=== PATIENT | female | born 1950 | race Hispanic/Latino ===

== ENCOUNTER 2019-01-27 11:26 | Inpatient (IN) | payer OTHER ==
[~2019-01-27] VITALS: Ht 157.5 cm; Wt 70.8 kg
--- OUTSIDE RECORDS SUMMARY | 2019-01-27 11:28 | XMS REPORT ---
Author Author [facility] Address Unknown Phone Unavailable Care Team Providers Care Beater Out Name Role Phone JACOB CALIXTO Unavailable Unavailable DOUGLAS JOLLY Unavailable Unavailable AMYASMIN SHAFFER HARSHINIE Unavailable Unavailable VICTOR HUGO SALAZAR Unavailable Unavailable Carlene BRAVO Unavailable Unavailable Problems This patient has no known problems. Allergies, Adverse Reactions, Alerts This patient has no known allergies or adverse reactions. Medications This patient has no known medications. Results Test Description Test Time Test Comments Text Results Atomic Results Result Comments TSH/FREE T4 IF INDICATED 2017-07-13 06:49:00 THYROID STIMULATING HORMONE (BEAKER) (test ogwl=482) 0.98 uIU/mL 0.35-4.94 HEPATITIS B SURFACE [id number] 16:14:00* Test Item Value Reference Range Comments HEPATITIS B SURFACE ANTIGEN (2) (BEAKER) (test mfnb=8917) Nonreactive Nonreactive For chronic HD patients, draw HBsAg with each admission then every 30 [address].CT, [id number] 21:30:00Reason for exam:->abdominal painWhat is the patient's sedation requirement?->No SedationFINAL REPORT CT, ABDOMEN \\T\\ PELVIS, WITHOUT IV CONTRAST INDICATION: "LLQ pain, suspect diverticulitisabdominal pain" COMPARISON: CT abdomen and pelvis 12/25/1999 and TECHNIQUE: Noncontrast axially oriented images were obtained from the diaphragms through the pelvis. Coronal and sagittal reformats were provided. DOSE REDUCTION: Dose modulation, iterative reconstruction, and/or weight-based adjustment of the mA/kV was utilized to reduce the radiation dose to as low as reasonably achievable. FINDINGS: Small right and trace left-sided effusion with adjacent airspace disease, likely atelectatic.Cardiomegaly. No acute abnormality of the solid abdominal viscera.Surgically absent gallbladder.At rophic kidneys. No acute abnormality of the hollow abdominal viscera.Normal appe ndix. Bone and vascular changes from renal osteodystrophy. IMPRESSION:No acute a bnormality in the abdomen or pelvis. Signed: Holland Fairbanks MDReport Verified D ate/Time: 07/11/2017 21:30:09 Reading Location: [facility] C013X Ortho Consult Read ing Room P M RAD, CHEST, 1 VIEW, NON [id number] 20:37:00Reason for exam:->ABDOMINAL PAINReason for exam:->NAUSEAReason for exam:->EMESISReason for exam:->EXTREMITY WEAKNESSReason for exam:->BRADYCARDIAFINAL REPORT History: Abdominal pain, nausea. FINDINGS: Compared with January 07, 2017, the heart and mediastinum are stable. As before, the heart is mildly enlarged. Mild diffuse increased interstitial lung markings persist. Linear atelectasis in the left midlung has resolved. Persistent opacity is seen in the right lung base, likely atelectasis. Blunting of the right costophrenic sulcus may represent a small pleural effusion. No pneumothorax. Bones are osteopenic but otherwise unremarkable. IMPRESSION: 1. Mild cardiomegaly, unchanged. 2. Mild diffuse increased interstitial lung markings, likely chronic. 3. Possible small right pleural effusion. Signed: David Navarro Verified Date/Time: 07/11/2017 20:37:28 Reading Location: [facility] C013W Consult Reading Room TIC FUNCTION PANEL 2017-07-11 20:21:00* Test Item Value Reference Range Comments TOTAL PROTEIN (BEAKER) (test jnas=763) 7.5 gm/dL 6.0-8.3 ALBUMIN (BEAKER) (test sski=9094) 3.9 g/dL 3.5-5.0 BILIRUBIN TOTAL (BEAKER) (test tmnl=861) 0.8 mg/dL 0.2-1.2 BILIRUBIN DIRECT (BEAKER) (test bflh=676) 0.3 mg/dL 0.1-0.5 ALKALINE PHOSPHATASE (BEAKER) (test ofoo=067) 146 U/L 40-150 AST (SGOT) (BEAKER) (test rtxx=630) 17 U/L 5-34 ALT (SGPT) (BEAKER) (test xtjq=244) 8 U/L 6-55 [id number] 20:21:00* Test Item Value Reference Range Comments LIPASE (BEAKER) (test hpcu=907) 8 U/L 8-78 B-TYPE NATRIURETIC FACTOR (BNP)2017-07-11 19:26:00* Test Item Value Reference Range Comments B-TYPE NATRIURETIC PEPTIDE (BEAKER) (test dcbd=044) 2843 pg/mL 0-100 CREATINE KINASE (CK), TOTAL AND [id number] 19:25:00* Test Item Value Reference Range Comments CREATINE KINASE TOTAL (BEAKER) (test tyfe=119) 30 U/L 29-200 CREATINE KINASE-MB (BEAKER) (test twpk=951) 0.9 ng/mL 0.0-6.6 CREATINE KINASE-MB INDEX (BEAKER) (test umsy=332) 3.0 % CK-MB Reference Range:<6.7 Normal6.7-10.0 Borderline>10.0 Abnormal TROPONIN [id number] 19:25:00* Test Item Value Reference Range Comments TROPONIN I (BEAKER) (test fbyd=159) 0.02 ng/mL 0.00-0.03 Troponin I (TnI) levels must be interpreted in the context of the presenting sym ptoms and the clinical findings. Elevated TnI levels indicate myocardial damage, but are not specific for ischemic heart disease. Elevated TnI levels are seen in patients with other cardiac conditions (including myocarditis and congestive h eart failure), and slight TnI elevations occur in patients with other conditions , including sepsis, renal failure, acidosis, acute neurological disease, and per sistent tachyarrhythmia.BASIC METABOLIC [id number] 19:21:00* Test Item Value Reference Range Comments SODIUM (BEAKER) (test gczw=186) 135 meq/L 136-145 POTASSIUM (BEAKER) (test xoqi=612) 5.2 meq/L 3.5-5.1 CHLORIDE (BEAKER) (test mrzk=421) 97 meq/L 98-107 CO2 (BEAKER) (test nicm=073) 27 meq/L 22-29 BLOOD UREA NITROGEN (BEAKER) (test tdch=867) 31 mg/dL 7-21 CREATININE (BEAKER) (test hiqa=543) 5.41 mg/dL 0.57-1.25 GLUCOSE RANDOM (BEAKER) (test cyhd=807) 143 mg/dL 70-105 CALCIUM (BEAKER) (test vytb=517) 9.4 mg/dL 8.4-10.2 EGFR (BEAKER) (test bxuv=3726) 8 mL/min/1.73 sq m ESTIMATED GFR IS NOT ACCURATE CREATININE CLEARANCE IN PREDICTING GLOMERULAR FILTRATION RATE. ESTIMATED GFR IS NOT APPLICABLE FOR DIALYSIS PATIENTS. [id number] 19:19:00* Test Item Value Reference Range Comments MAGNESIUM (BEAKER) (test rbwf=080) 1.8 mg/dL 1.6-2.6 CBC W/PLT COUNT & AUTO [id number] 18:59:00* Test Item Value Reference Range Comments WHITE BLOOD CELL COUNT (BEAKER) (test owpj=490) 6.2 K/ L 3.5-10.5 RED BLOOD CELL COUNT (BEAKER) (test zbwv=660) 3.63 M/ L 3.93-5.22 HEMOGLOBIN (BEAKER) (test tqni=146) 11.1 GM/DL 11.2-15.7 HEMATOCRIT (BEAKER) (test qdmu=600) 34.4 % 34.1-44.9 MEAN CORPUSCULAR VOLUME (BEAKER) (test bmyu=028) 94.8 fL 79.4-94.8 MEAN CORPUSCULAR HEMOGLOBIN (BEAKER) (test tykr=453) 30.6 pg 25.6-32.2 MEAN CORPUSCULAR HEMOGLOBIN CONC (BEAKER) (test hubx=658) 32.3 GM/DL 32.2-35.5 RED CELL DISTRIBUTION WIDTH (BEAKER) (test upav=132) 14.3 % 11.7-14.4 PLATELET COUNT (BEAKER) (test bsvv=777) 201 K/CU MM 150-450 MEAN PLATELET VOLUME (BEAKER) (test rkxa=384) 10.5 fL 9.4-12.3 NUCLEATED RED BLOOD CELLS (BEAKER) (test zudm=746) 0 /100 WBC 0-0 NEUTROPHILS RELATIVE PERCENT (BEAKER) (test vkku=566) 68 % LYMPHOCYTES RELATIVE PERCENT (BEAKER) (test hwio=716) 19 % MONOCYTES RELATIVE PERCENT (BEAKER) (test nrnh=314) 10 % EOSINOPHILS RELATIVE PERCENT (BEAKER) (test dgmo=099) 1 % BASOPHILS RELATIVE PERCENT (BEAKER) (test pgal=245) 1 % NEUTROPHILS ABSOLUTE COUNT (BEAKER) (test uuta=480) 4.23 K/ L 1.56-6.13 LYMPHOCYTES ABSOLUTE COUNT (BEAKER) (test fhju=195) 1.19 K/ L 1.18-3.74 MONOCYTES ABSOLUTE COUNT (BEAKER) (test dsmv=618) 0.64 K/ L 0.24-0.36 EOSINOPHILS ABSOLUTE COUNT (BEAKER) (test zzzi=049) 0.09 K/ L 0.04-0.36 BASOPHILS ABSOLUTE COUNT (BEAKER) (test betg=189) 0.04 K/ L 0.01-0.08 IMMATURE GRANULOCYTES-RELATIVE PERCENT (BEAKER) (test ifdd=9226) 0 % 0-1 POCT-GLUCOSE [id number] 16:27:00* Test Item Value Reference Range Comments POC-GLUCOSE METER (BEAKER) (test bwvt=2716) 105 mg/dL 70-110 TESTED AT [address] [address] POCT-GLUCOSE [id number] 11:06:00* Test Item Value Reference Range Comments POC-GLUCOSE METER (BEAKER) (test vdnn=8369) 128 mg/dL 70-110 TESTED AT [address] [address] POCT-GLUCOSE [id number] 06:21:00* Test Item Value Reference Range Comments POC-GLUCOSE METER (BEAKER) (test fylp=5045) 119 mg/dL 70-110 TESTED AT [address] [address] POCT-GLUCOSE [id number] 20:26:00* Test Item Value Reference Range Comments POC-GLUCOSE METER (BEAKER) (test njsk=6497) 119 mg/dL 70-110 TESTED AT [address] [address] [id number] 19:43:00* Test Item Value Reference Range Comments PHOSPHORUS (BEAKER) (test klpb=291) 3.2 mg/dL 2.3-4.7 Call lab to add to blood sent this AM. Downtime please. Call me if result is abn ormal. Do not stick patient again now just for this. If unable to do downtime, then add this to labs next week. Ghulam Miranda MD [phone]. Thank [facility].BASIC METABOLIC [id number] 15:39:00* Test Item Value Reference Range Comments SODIUM (BEAKER) (test gpsb=548) 136 meq/L 136-145 POTASSIUM (BEAKER) (test drta=615) 4.6 meq/L 3.5-5.1 CHLORIDE (BEAKER) (test kncw=345) 100 meq/L 98-107 CO2 (BEAKER) (test efox=897) 24 meq/L 22-29 BLOOD UREA NITROGEN (BEAKER) (test eihz=832) 44 mg/dL 7-21 CREATININE (BEAKER) (test vqnj=996) 7.86 mg/dL 0.57-1.25 GLUCOSE RANDOM (BEAKER) (test glaw=994) 113 mg/dL 70-105 CALCIUM (BEAKER) (test mpgw=863) 9.2 mg/dL 8.4-10.2 EGFR (BEAKER) (test rtcn=0089) 5 mL/min/1.73 sq m ESTIMATED GFR IS NOT ACCURATE CREATININE CLEARANCE IN PREDICTING GLOMERULAR FILTRATION RATE. ESTIMATED GFR IS NOT APPLICABLE FOR DIALYSIS PATIENTS. CBC W/PLT COUNT & AUTO [id number] 15:31:00* Test Item Value Reference Range Comments WHITE BLOOD CELL COUNT (BEAKER) (test coui=665) 8.7 K/ L 4.0-10.0 RED BLOOD CELL COUNT (BEAKER) (test ymuo=810) 3.29 M/ L 4.00-5.00 HEMOGLOBIN (BEAKER) (test slej=844) 10.4 GM/DL 12.0-15.0 HEMATOCRIT (BEAKER) (test zyal=607) 32.3 % 36.0-45.0 MEAN CORPUSCULAR VOLUME (BEAKER) (test tdzz=251) 98.2 fL 82.0-99.0 MEAN CORPUSCULAR HEMOGLOBIN (BEAKER) (test yitq=275) 31.7 pg 27.0-33.0 MEAN CORPUSCULAR HEMOGLOBIN CONC (BEAKER) (test wpbm=716) 32.3 GM/DL 32.0-36.0 RED CELL DISTRIBUTION WIDTH (BEAKER) (test ygyx=026) 13.2 % 10.3-14.2 PLATELET COUNT (BEAKER) (test ywqe=443) 231 K/CU MM 150-430 MEAN PLATELET VOLUME (BEAKER) (test bepm=049) 8.0 fL 6.5-10.5 NUCLEATED RED BLOOD CELLS (BEAKER) (test jvru=172) 0 /100 WBC 0-0 NEUTROPHILS RELATIVE PERCENT (BEAKER) (test jjig=267) 67 % LYMPHOCYTES RELATIVE PERCENT (BEAKER) (test fsiw=880) 23 % MONOCYTES RELATIVE PERCENT (BEAKER) (test chlo=938) 6 % EOSINOPHILS RELATIVE PERCENT (BEAKER) (test wbsk=306) 2 % BASOPHILS RELATIVE PERCENT (BEAKER) (test ktds=578) 1 % NEUTROPHILS ABSOLUTE COUNT (BEAKER) (test uwtw=444) 5.81 K/ L 1.80-8.00 LYMPHOCYTES ABSOLUTE COUNT (BEAKER) (test dicx=109) 2.04 K/ L 1.48-4.50 MONOCYTES ABSOLUTE COUNT (BEAKER) (test mxrj=755) 0.56 K/ L 0.00-1.30 EOSINOPHILS ABSOLUTE COUNT (BEAKER) (test mxhw=266) 0.21 K/ L 0.00-0.50 BASOPHILS ABSOLUTE COUNT (BEAKER) (test ache=064) 0.08 K/ L 0.00-0.20 0.00POCT-GLUCOSE [id number] 11:45:00* Test Item Value Reference Range Comments POC-GLUCOSE METER (BEAKER) (test uhop=3659) 102 mg/dL 70-110 TESTED AT [address] [address] POCT-GLUCOSE [id number] 06:15:00* Test Item Value Reference Range Comments POC-GLUCOSE METER (BEAKER) (test alew=4961) 114 mg/dL 70-110 TESTED AT [address] [address] POCT-GLUCOSE [id number] 20:44:00* Test Item Value Reference Range Comments POC-GLUCOSE METER (BEAKER) (test hdvw=4658) 130 mg/dL 70-110 TESTED AT [address] [address] POCT-GLUCOSE [id number] 16:46:00* Test Item Value Reference Range Comments POC-GLUCOSE METER (BEAKER) (test qklq=4121) 101 mg/dL 70-110 TESTED AT [facility] [address] [facility] [address] TISSUE [id number] 16:13:00Surgical Pathology Report Case: [id number] Authorizing Provider: Heath Abel Collected: 01/12/2017 1526 MD Yasmin Ordering Location: [facility] Received: 01/15/2017 0746 Pathologist: Sravan Joseph MD Specimens: A) - Stomach, Antrum, antrum nodularity BX B) - Biopsy, Gastric, gastric body BX - errythema C) - Distal Esophagus, BX PART A GASTRIC ANTRUM BIOPSY:MILD CHRONIC INACTIVE GASTRITIS WITH FOVEOLAR HYPERPLASIAWARTHIN STARRY STAIN FOR HELICOBACTER IS NEGATIVE.PART B GASTRIC BODY BIOPSY:MILD CHRONIC INACTIVE GASTRITIS.WARTHIN STARRY STAIN FOR HELICOBACTER IS NEGATIVEPART C DISTAL ESOPHAGUS BIOPSY:SQUAMOUS EPITHELIUM WITH CHRONIC INFLAMMATION AND REACTIVE CHANGES.NEGATIVE FOR INCREASED EOSINOPHILS, DYSPLASIA, OR INVASIVE CARCINOMA. [id number], [id number] imaging study, erythemaA. Stomach antrum nodularity biopsy; B. Gastric body biopsy; C. Distal esophagus biopsyThe specimen is received in three received in a formalin-filled container all labeled with the patient's information.Specimen A labeled "stomach antrum nodularity biopsy" consists of two fragments of godwin tissue measuring 0.1 and 0.3 cm, submitted A1. Specimen B labeled "gastric body biopsy" consists of three fragments of godwin tissue ranging from 0.1 to 0.2 cm, submitted B1. Specimen C labeled "distal esophagus biopsy" consists of two fragments of godwin tissue ranging from 0.1 to 0.2 cm, submitted entirely C1. CG/plThe following special studies were performed on this case and the interpretation is incorporated in the diagnostic report above:BLOCK A1- WARTHIN STARRYBLOCK B1- WARTHIN STARRY POCT-GLUCOSE [id number] 12:17:00* Test Item Value Reference Range Comments POC-GLUCOSE METER (BEAKER) (test cjbh=0261) 125 mg/dL 70-110 TESTED AT [facility] [address] [facility] [address] POCT-GLUCOSE [id number] 07:11:00* Test Item Value Reference Range Comments POC-GLUCOSE METER (BEAKER) (test eqva=9400) 128 mg/dL 70-110 TESTED AT [address] [address] POCT-GLUCOSE [id number] 21:38:00* Test Item Value Reference Range Comments POC-GLUCOSE METER (BEAKER) (test zosn=4133) 134 mg/dL 70-110 TESTED AT [address] [address] POCT-GLUCOSE [id number] 17:03:00* Test Item Value Reference Range Comments POC-GLUCOSE METER (BEAKER) (test zjec=0349) 119 mg/dL 70-110 TESTED AT [address] [address] POCT-GLUCOSE [id number] 11:12:00* Test Item Value Reference Range Comments POC-GLUCOSE METER (BEAKER) (test szdf=0853) 117 mg/dL 70-110 TESTED AT [address] [address] POCT-GLUCOSE [id number] 06:25:00* Test Item Value Reference Range Comments POC-GLUCOSE METER (BEAKER) (test hhon=6470) 118 mg/dL 70-110 TESTED AT [address] [address] POCT-GLUCOSE [id number] 23:28:00* Test Item Value Reference Range Comments POC-GLUCOSE METER (BEAKER) (test jaek=3083) 152 mg/dL 70-110 TESTED AT [address] [address] POCT-GLUCOSE [id number] 20:02:00* Test Item Value Reference Range Comments POC-GLUCOSE METER (BEAKER) (test levm=5470) 53 mg/dL 70-110 TESTED AT [address] [address] POCT-GLUCOSE [id number] 16:09:00* Test Item Value Reference Range Comments POC-GLUCOSE METER (BEAKER) (test hwsr=2867) 154 mg/dL 70-110 TESTED AT [address] [address] BASIC METABOLIC [id number] 08:26:00* Test Item Value Reference Range Comments SODIUM (BEAKER) (test lhih=147) 140 meq/L 136-145 POTASSIUM (BEAKER) (test okjy=161) 4.0 meq/L 3.5-5.1 CHLORIDE (BEAKER) (test cntc=263) 103 meq/L 98-107 CO2 (BEAKER) (test fjmz=815) 26 meq/L 22-29 BLOOD UREA NITROGEN (BEAKER) (test wjnk=611) 18 mg/dL 7-21 CREATININE (BEAKER) (test yyhi=850) 5.09 mg/dL 0.57-1.25 GLUCOSE RANDOM (BEAKER) (test nqrj=625) 93 mg/dL 70-105 CALCIUM (BEAKER) (test eude=535) 9.0 mg/dL 8.4-10.2 EGFR (BEAKER) (test oyhb=6660) 8 mL/min/1.73 sq m ESTIMATED GFR IS NOT ACCURATE CREATININE CLEARANCE IN PREDICTING GLOMERULAR FILTRATION RATE. ESTIMATED GFR IS NOT APPLICABLE FOR DIALYSIS PATIENTS. Draw at start of HD on day of HD if not yet sent for that day.For use at start o f hemodialysis treatment during day of HD. Floor nurse should not touch this order pre dialysis treatment or else the dialysis nurse will not be able to see this order.If BMP has been done earlier on day of HD, but there is no magnesium, call lab to add magnesium and do it downtime.Draw at start of HD on day of HD if labs not yet sent for that day.For use at start of hemodialysis treatment dur ing day of HD. Floor nurse should not touch this order pre dialysis treatment or else the dialysis nurse will not be able to see this order.Routine. If BMP srinivasan s been done earlier on day of HD, but there is no phosphorus, call lab to add ph osphorus, and do it downtime from previous sample sent.Draw at start of HD on da y of HD if labs not yet sent for that day.For use at start of hemodialysis chrissy tment during day of HD. Floor nurse should not touch this order pre dialysis t reatment or else the dialysis nurse will not be able to see this order. [id number] 08:19:00* Test Item Value Reference Range Comments PHOSPHORUS (BEAKER) (test jdut=342) 3.1 mg/dL 2.3-4.7 Draw at start of HD on day of HD if not yet sent for that day.For use at start o f hemodialysis treatment during day of HD. Floor nurse should not touch this order pre dialysis treatment or else the dialysis nurse will not be able to see this order.If BMP has been done earlier on day of HD, but there is no magnesium, call lab to add magnesium and do it downtime.Draw at start of HD on day of HD if labs not yet sent for that day.For use at start of hemodialysis treatment dur ing day of HD. Floor nurse should not touch this order pre dialysis treatment or else the dialysis nurse will not be able to see this order.Routine. If BMP srinivasan s been done earlier on day of HD, but there is no phosphorus, call lab to add ph osphorus, and do it downtime from previous sample sent.Draw at start of HD on da y of HD if labs not yet sent for that day.For use at start of hemodialysis chrissy tment during day of HD. Floor nurse should not touch this order pre dialysis t reatment or else the dialysis nurse will not be able to see this order.MAGNESIUM 2017-01-13 08:19:00* Test Item Value Reference Range Comments MAGNESIUM (DISHAAKER) (test cyqe=680) 2.2 mg/dL 1.6-2.6 Draw at start of HD on day of HD if not yet sent for that day.For use at start o f hemodialysis treatment during day of HD. Floor nurse should not touch this order pre dialysis treatment or else the dialysis nurse will not be able to see this order.If BMP has been done earlier on day of HD, but there is no magnesium, call lab to add magnesium and do it downtime.Draw at start of HD on day of HD if labs not yet sent for that day.For use at start of hemodialysis treatment dur ing day of HD. Floor nurse should not touch this order pre dialysis treatment or else the dialysis nurse will not be able to see this order.Routine. If BMP srinivasan s been done earlier on day of HD, but there is no phosphorus, call lab to add ph osphorus, and do it downtime from previous sample sent.Draw at start of HD on da y of HD if labs not yet sent for that day.For use at start of hemodialysis chrissy tment during day of HD. Floor nurse should not touch this order pre dialysis t reatment or else the dialysis nurse will not be able to see this order.CBC W/PLT COUNT & AUTO [id number] 08:16:00* Test Item Value Reference Range Comments WHITE BLOOD CELL COUNT (BEAKER) (test yrkh=148) 5.7 K/ L 4.0-10.0 RED BLOOD CELL COUNT (BEAKER) (test qjac=022) 3.24 M/ L 4.00-5.00 HEMOGLOBIN (BEAKER) (test blnx=914) 10.1 GM/DL 12.0-15.0 HEMATOCRIT (BEAKER) (test qrjv=030) 31.5 % 36.0-45.0 MEAN CORPUSCULAR VOLUME (BEAKER) (test nzmc=426) 97.4 fL 82.0-99.0 MEAN CORPUSCULAR HEMOGLOBIN (BEAKER) (test dpbb=827) 31.2 pg 27.0-33.0 MEAN CORPUSCULAR HEMOGLOBIN CONC (BEAKER) (test lpuo=571) 32.0 GM/DL 32.0-36.0 RED CELL DISTRIBUTION WIDTH (BEAKER) (test inpe=949) 13.6 % 10.3-14.2 PLATELET COUNT (BEAKER) (test duqf=915) 248 K/CU MM 150-430 MEAN PLATELET VOLUME (BEAKER) (test wfrk=899) 7.7 fL 6.5-10.5 NUCLEATED RED BLOOD CELLS (BEAKER) (test rpth=433) 0 /100 WBC 0-0 NEUTROPHILS RELATIVE PERCENT (BEAKER) (test grlt=716) 59 % LYMPHOCYTES RELATIVE PERCENT (BEAKER) (test mciq=750) 27 % MONOCYTES RELATIVE PERCENT (BEAKER) (test ghgc=727) 10 % EOSINOPHILS RELATIVE PERCENT (BEAKER) (test keth=561) 3 % BASOPHILS RELATIVE PERCENT (BEAKER) (test ljsc=906) 1 % NEUTROPHILS ABSOLUTE COUNT (BEAKER) (test zxso=425) 3.38 K/ L 1.80-8.00 LYMPHOCYTES ABSOLUTE COUNT (BEAKER) (test ibqo=064) 1.52 K/ L 1.48-4.50 MONOCYTES ABSOLUTE COUNT (BEAKER) (test ajhw=749) 0.58 K/ L 0.00-1.30 EOSINOPHILS ABSOLUTE COUNT (BEAKER) (test lokf=696) 0.18 K/ L 0.00-0.50 BASOPHILS ABSOLUTE COUNT (BEAKER) (test gdhk=412) 0.07 K/ L 0.00-0.20 0.00POCT-GLUCOSE [id number] 07:57:00* Test Item Value Reference Range Comments POC-GLUCOSE METER (BEAKER) (test uldz=2479) 102 mg/dL 70-110 TESTED AT [address] [address] POCT-GLUCOSE [id number] 06:36:00* Test Item Value Reference Range Comments POC-GLUCOSE METER (BEAKER) (test bxps=6023) 95 mg/dL 70-110 TESTED AT [address] [address] POCT-GLUCOSE [id number] 20:09:00* Test Item Value Reference Range Comments POC-GLUCOSE METER (BEAKER) (test xxtu=3637) 94 mg/dL 70-110 TESTED AT [address] [address] POCT-GLUCOSE [id number] 17:28:00* Test Item Value Reference Range Comments POC-GLUCOSE METER (BEAKER) (test drvg=9065) 102 mg/dL 70-110 TESTED AT [address] [address] BLOOD [id number] 16:48:00* Test Item Value Reference Range Comments CULTURE (BEAKER) (test jwnb=4855) No growth in 5 days BLOOD [id number] 16:48:00* Test Item Value Reference Range Comments CULTURE (BEAKER) (test dowf=2340) No growth in 5 days POCT-GLUCOSE [id number] 16:03:00* Test Item Value Reference Range Comments POC-GLUCOSE METER (BEAKER) (test xrxw=5387) 88 mg/dL 70-110 TESTED AT [address] [address] POCT-GLUCOSE [id number] 11:55:00* Test Item Value Reference Range Comments POC-GLUCOSE METER (BEAKER) (test yqqe=8321) 109 mg/dL 70-110 TESTED AT [address] [address] POCT-GLUCOSE [id number] 06:16:00* Test Item Value Reference Range Comments POC-GLUCOSE METER (BEAKER) (test zqsh=2688) 109 mg/dL 70-110 TESTED AT [address] [address] POCT-GLUCOSE [id number] 21:32:00* Test Item Value Reference Range Comments POC-GLUCOSE METER (BEAKER) (test ghjz=3084) 103 mg/dL 70-110 TESTED AT [facility] [address] [facility] [address] POCT-GLUCOSE [id number] 18:40:00* Test Item Value Reference Range Comments POC-GLUCOSE METER (BEAKER) (test vsuc=7532) 139 mg/dL 70-110 TESTED AT [facility] [address] [facility] [address] BASIC METABOLIC [id number] 17:58:00* Test Item Value Reference Range Comments SODIUM (BEAKER) (test stee=589) 136 meq/L 136-145 POTASSIUM (BEAKER) (test gdec=548) 4.2 meq/L 3.5-5.1 CHLORIDE (BEAKER) (test oaen=124) 97 meq/L 98-107 CO2 (BEAKER) (test wbcr=096) 30 meq/L 22-29 BLOOD UREA NITROGEN (BEAKER) (test kldl=286) 25 mg/dL 7-21 CREATININE (BEAKER) (test mjbo=900) 6.19 mg/dL 0.57-1.25 GLUCOSE RANDOM (BEAKER) (test yfeb=761) 125 mg/dL 70-105 CALCIUM (BEAKER) (test ijgs=625) 9.1 mg/dL 8.4-10.2 EGFR (BEAKER) (test jfcq=3659) 7 mL/min/1.73 sq m ESTIMATED GFR IS NOT ACCURATE CREATININE CLEARANCE IN PREDICTING GLOMERULAR FILTRATION RATE. ESTIMATED GFR IS NOT APPLICABLE FOR DIALYSIS PATIENTS. Draw at start of HD on day of HD if not yet sent for that day.For use at start o f hemodialysis treatment during day of HD. Floor nurse should not touch this order pre dialysis treatment or else the dialysis nurse will not be able to see this order.If BMP has been done earlier on day of HD, but there is no magnesium, call lab to add magnesium and do it downtime.Draw at start of HD on day of HD if labs not yet sent for that day.For use at start of hemodialysis treatment dur ing day of HD. Floor nurse should not touch this order pre dialysis treatment or else the dialysis nurse will not be able to see this order.Routine. If BMP srinivasan s been done earlier on day of HD, but there is no phosphorus, call lab to add ph osphorus, and do it downtime from previous sample sent.Draw at start of HD on da y of HD if labs not yet sent for that day.For use at start of hemodialysis chrissy tment during day of HD. Floor nurse should not touch this order pre dialysis t reatment or else the dialysis nurse will not be able to see this order. [id number] 17:57:00* Test Item Value Reference Range Comments PHOSPHORUS (KATE) (test kwfs=013) 2.8 mg/dL 2.3-4.7 Draw at start of HD on day of HD if not yet sent for that day.For use at start o f hemodialysis treatment during day of HD. Floor nurse should not touch this order pre dialysis treatment or else the dialysis nurse will not be able to see this order.If BMP has been done earlier on day of HD, but there is no magnesium, call lab to add magnesium and do it downtime.Draw at start of HD on day of HD if labs not yet sent for that day.For use at start of hemodialysis treatment dur ing day of HD. Floor nurse should not touch this order pre dialysis treatment or else the dialysis nurse will not be able to see this order.Routine. If BMP srinivasan s been done earlier on day of HD, but there is no phosphorus, call lab to add ph osphorus, and do it downtime from previous sample sent.Draw at start of HD on da y of HD if labs not yet sent for that day.For use at start of hemodialysis chrissy tment during day of HD. Floor nurse should not touch this order pre dialysis t reatment or else the dialysis nurse will not be able to see this order.MAGNESIUM 2017-01-11 17:57:00* Test Item Value Reference Range Comments MAGNESIUM (KATE) (test ddev=426) 2.2 mg/dL 1.6-2.6 Draw at start of HD on day of HD if not yet sent for that day.For use at start o f hemodialysis treatment during day of HD. Floor nurse should not touch this order pre dialysis treatment or else the dialysis nurse will not be able to see this order.If BMP has been done earlier on day of HD, but there is no magnesium, call lab to add magnesium and do it downtime.Draw at start of HD on day of HD if labs not yet sent for that day.For use at start of hemodialysis treatment dur ing day of HD. Floor nurse should not touch this order pre dialysis treatment or else the dialysis nurse will not be able to see this order.Routine. If BMP srinivasan s been done earlier on day of HD, but there is no phosphorus, call lab to add ph osphorus, and do it downtime from previous sample sent.Draw at start of HD on da y of HD if labs not yet sent for that day.For use at start of hemodialysis chrissy tment during day of HD. Floor nurse should not touch this order pre dialysis t reatment or else the dialysis nurse will not be able to see this order.CBC W/PLT COUNT & AUTO [id number] 17:48:00* Test Item Value Reference Range Comments WHITE BLOOD CELL COUNT (BEAKER) (test gjui=882) 7.7 K/ L 4.0-10.0 RED BLOOD CELL COUNT (BEAKER) (test nqxx=099) 3.01 M/ L 4.00-5.00 HEMOGLOBIN (BEAKER) (test rctf=451) 9.6 GM/DL 12.0-15.0 HEMATOCRIT (BEAKER) (test kbma=848) 29.2 % 36.0-45.0 MEAN CORPUSCULAR VOLUME (BEAKER) (test axet=191) 96.9 fL 82.0-99.0 MEAN CORPUSCULAR HEMOGLOBIN (BEAKER) (test ofah=828) 31.8 pg 27.0-33.0 MEAN CORPUSCULAR HEMOGLOBIN CONC (BEAKER) (test qwsz=085) 32.8 GM/DL 32.0-36.0 RED CELL DISTRIBUTION WIDTH (BEAKER) (test czwt=698) 13.3 % 10.3-14.2 PLATELET COUNT (BEAKER) (test pbla=507) 241 K/CU MM 150-430 MEAN PLATELET VOLUME (BEAKER) (test zepo=505) 7.9 fL 6.5-10.5 NUCLEATED RED BLOOD CELLS (BEAKER) (test qbmu=566) 0 /100 WBC 0-0 NEUTROPHILS RELATIVE PERCENT (BEAKER) (test dmqi=430) 62 % LYMPHOCYTES RELATIVE PERCENT (BEAKER) (test lkiq=542) 23 % MONOCYTES RELATIVE PERCENT (BEAKER) (test yoxw=588) 11 % EOSINOPHILS RELATIVE PERCENT (BEAKER) (test fjgv=660) 4 % BASOPHILS RELATIVE PERCENT (BEAKER) (test zaec=173) 1 % NEUTROPHILS ABSOLUTE COUNT (BEAKER) (test wncj=742) 4.72 K/ L 1.80-8.00 LYMPHOCYTES ABSOLUTE COUNT (BEAKER) (test yxqp=101) 1.78 K/ L 1.48-4.50 MONOCYTES ABSOLUTE COUNT (BEAKER) (test wwjm=387) 0.83 K/ L 0.00-1.30 EOSINOPHILS ABSOLUTE COUNT (BEAKER) (test dtfv=009) 0.28 K/ L 0.00-0.50 BASOPHILS ABSOLUTE COUNT (BEAKER) (test oynf=693) 0.06 K/ L 0.00-0.20 0.00POCT-GLUCOSE [id number] 16:19:00* Test Item Value Reference Range Comments POC-GLUCOSE METER (BEAKER) (test lijy=9945) 136 mg/dL 70-110 TESTED AT [address] [address] POCT-GLUCOSE [id number] 12:10:00* Test Item Value Reference Range Comments POC-GLUCOSE METER (BEAKER) (test sccg=5592) 110 mg/dL 70-110 TESTED AT [address] [address] POCT-GLUCOSE [id number] 06:01:00* Test Item Value Reference Range Comments POC-GLUCOSE METER (BEAKER) (test sxdi=7977) 127 mg/dL 70-110 TESTED AT [address] [address] POCT-GLUCOSE [id number] 20:09:00* Test Item Value Reference Range Comments POC-GLUCOSE METER (BEAKER) (test yxqo=8656) 124 mg/dL 70-110 TESTED AT [address] [address] POCT-GLUCOSE [id number] 16:59:00* Test Item Value Reference Range Comments POC-GLUCOSE METER (BEAKER) (test rock=7757) 149 mg/dL 70-110 TESTED AT [address] [address] POCT-GLUCOSE [id number] 11:39:00* Test Item Value Reference Range Comments POC-GLUCOSE METER (BEAKER) (test rbbu=7171) 114 mg/dL 70-110 TESTED AT [address] [address] POCT-GLUCOSE [id number] 06:14:00* Test Item Value Reference Range Comments POC-GLUCOSE METER (BEAKER) (test segl=2482) 125 mg/dL 70-110 TESTED AT [facility] [address] [facility] [address] POCT-GLUCOSE [id number] 21:56:00* Test Item Value Reference Range Comments POC-GLUCOSE METER (BEAKER) (test ttol=0683) 99 mg/dL 70-110 TESTED AT [place] [id number] [facility] [address] POCT-GLUCOSE [id number] 17:59:00* Test Item Value Reference Range Comments POC-GLUCOSE METER (BEAKER) (test mtdk=1859) 100 mg/dL 70-110 TESTED AT [place] [id number] [facility] [address] BASIC METABOLIC [id number] 16:23:00* Test Item Value Reference Range Comments SODIUM (BEAKER) (test arue=454) 135 meq/L 136-145 POTASSIUM (BEAKER) (test bbbm=742) 4.5 meq/L 3.5-5.1 CHLORIDE (BEAKER) (test jimx=849) 98 meq/L 98-107 CO2 (BEAKER) (test maoj=446) 27 meq/L 22-29 BLOOD UREA NITROGEN (BEAKER) (test oeke=292) 32 mg/dL 7-21 CREATININE (BEAKER) (test awuy=001) 7.12 mg/dL 0.57-1.25 GLUCOSE RANDOM (BEAKER) (test dfou=764) 111 mg/dL 70-105 CALCIUM (BEAKER) (test jzzi=235) 9.1 mg/dL 8.4-10.2 EGFR (BEAKER) (test oalx=6820) 6 mL/min/1.73 sq m ESTIMATED GFR IS NOT ACCURATE CREATININE CLEARANCE IN PREDICTING GLOMERULAR FILTRATION RATE. ESTIMATED GFR IS NOT APPLICABLE FOR DIALYSIS PATIENTS. If BMP has been done earlier on day of HD, but there is no magnesium, call lab t o add magnesium and do it downtime.Draw at start of HD on day of HD if labs not yet sent for that day.For use at start of hemodialysis treatment during day o f HD. Floor nurse should not touch this order pre dialysis treatment or else the dialysis nurse will not be able to see this order.Routine. If BMP has been done earlier on day of HD, but there is no phosphorus, call lab to add phosphorus, a nd do it downtime from previous sample sent.Draw at start of HD on day of HD if labs not yet sent for that day.For use at start of hemodialysis treatment durin g day of HD. Floor nurse should not touch this order pre dialysis treatment or else the dialysis nurse will not be able to see this order.[id number] 16:22:00* Test Item Value Reference Range Comments MAGNESIUM (KATE) (test urgr=222) 2.2 mg/dL 1.6-2.6 If BMP has been done earlier on day of HD, but there is no magnesium, call lab t o add magnesium and do it downtime.Draw at start of HD on day of HD if labs not yet sent for that day.For use at start of hemodialysis treatment during day o f HD. Floor nurse should not touch this order pre dialysis treatment or else the dialysis nurse will not be able to see this order.Routine. If BMP has been done earlier on day of HD, but there is no phosphorus, call lab to add phosphorus, a nd do it downtime from previous sample sent.Draw at start of HD on day of HD if labs not yet sent for that day.For use at start of hemodialysis treatment durin g day of HD. Floor nurse should not touch this order pre dialysis treatment or else the dialysis nurse will not be able to see this order.[id number] 16:22:00* Test Item Value Reference Range Comments PHOSPHORUS (KATE) (test nprz=972) 2.9 mg/dL 2.3-4.7 If BMP has been done earlier on day of HD, but there is no magnesium, call lab t o add magnesium and do it downtime.Draw at start of HD on day of HD if labs not yet sent for that day.For use at start of hemodialysis treatment during day o f HD. Floor nurse should not touch this order pre dialysis treatment or else the dialysis nurse will not be able to see this order.Routine. If BMP has been done earlier on day of HD, but there is no phosphorus, call lab to add phosphorus, a nd do it downtime from previous sample sent.Draw at start of HD on day of HD if labs not yet sent for that day.For use at start of hemodialysis treatment durin g day of HD. Floor nurse should not touch this order pre dialysis treatment or else the dialysis nurse will not be able to see this order.CBC W/PLT COUNT & AUTO [id number] 16:01:00* Test Item Value Reference Range Comments WHITE BLOOD CELL COUNT (BEAKER) (test rbgs=911) 8.8 K/ L 4.0-10.0 RED BLOOD CELL COUNT (BEAKER) (test dril=406) 3.09 M/ L 4.00-5.00 HEMOGLOBIN (BEAKER) (test dgkv=052) 9.7 GM/DL 12.0-15.0 HEMATOCRIT (BEAKER) (test ptll=900) 30.2 % 36.0-45.0 MEAN CORPUSCULAR VOLUME (BEAKER) (test gwbc=180) 97.9 fL 82.0-99.0 MEAN CORPUSCULAR HEMOGLOBIN (BEAKER) (test qtub=299) 31.5 pg 27.0-33.0 MEAN CORPUSCULAR HEMOGLOBIN CONC (BEAKER) (test zmtm=744) 32.2 GM/DL 32.0-36.0 RED CELL DISTRIBUTION WIDTH (BEAKER) (test hmkb=802) 12.6 % 10.3-14.2 PLATELET COUNT (BEAKER) (test kvaw=333) 229 K/CU MM 150-430 MEAN PLATELET VOLUME (BEAKER) (test vvfs=346) 8.0 fL 6.5-10.5 NUCLEATED RED BLOOD CELLS (BEAKER) (test cdlx=099) 0 /100 WBC 0-0 NEUTROPHILS RELATIVE PERCENT (BEAKER) (test moik=481) 68 % LYMPHOCYTES RELATIVE PERCENT (BEAKER) (test faoz=324) 20 % MONOCYTES RELATIVE PERCENT (BEAKER) (test ogkh=363) 10 % EOSINOPHILS RELATIVE PERCENT (BEAKER) (test sdrs=420) 2 % BASOPHILS RELATIVE PERCENT (BEAKER) (test oxgg=402) 1 % NEUTROPHILS ABSOLUTE COUNT (BEAKER) (test zlzr=011) 5.94 K/ L 1.80-8.00 LYMPHOCYTES ABSOLUTE COUNT (BEAKER) (test ddur=530) 1.74 K/ L 1.48-4.50 MONOCYTES ABSOLUTE COUNT (BEAKER) (test bobz=816) 0.85 K/ L 0.00-1.30 EOSINOPHILS ABSOLUTE COUNT (BEAKER) (test ouwb=310) 0.19 K/ L 0.00-0.50 BASOPHILS ABSOLUTE COUNT (BEAKER) (test aqco=279) 0.07 K/ L 0.00-0.20 0.00POCT-GLUCOSE [id number] 11:22:00* Test Item Value Reference Range Comments POC-GLUCOSE METER (BEAKER) (test vfpe=7856) 102 mg/dL 70-110 TESTED AT [address] [address] POCT-GLUCOSE [id number] 05:59:00* Test Item Value Reference Range Comments POC-GLUCOSE METER (BEAKER) (test sqsn=4940) 107 mg/dL 70-110 TESTED AT [address] [address] POCT-GLUCOSE [id number] 21:20:00* Test Item Value Reference Range Comments POC-GLUCOSE METER (BEAKER) (test heym=5363) 117 mg/dL 70-110 TESTED AT [address] [address] POCT-GLUCOSE [id number] 21:05:00* Test Item Value Reference Range Comments POC-GLUCOSE METER (BEAKER) (test xzir=6407) 155 mg/dL 70-110 TESTED AT [address] [address] POCT-GLUCOSE [id number] 16:30:00* Test Item Value Reference Range Comments POC-GLUCOSE METER (BEAKER) (test icki=4078) 130 mg/dL 70-110 TESTED AT [address] [address] POCT-GLUCOSE [id number] 11:07:00* Test Item Value Reference Range Comments POC-GLUCOSE METER (BEAKER) (test mcmz=7223) 133 mg/dL 70-110 TESTED AT [address] [address] POCT-GLUCOSE [id number] 20:45:00* Test Item Value Reference Range Comments POC-GLUCOSE METER (BEAKER) (test bdgw=0654) 120 mg/dL 70-110 TESTED AT [address] [address] POCT-GLUCOSE [id number] 16:21:00* Test Item Value Reference Range Comments POC-GLUCOSE METER (BEAKER) (test iyrq=1603) 124 mg/dL 70-110 TESTED AT [address] [address] POCT-GLUCOSE [id number] 11:11:00* Test Item Value Reference Range Comments POC-GLUCOSE METER (BEAKER) (test dlbf=1368) 134 mg/dL 70-110 TESTED AT [facility] [address] [facility] [address] POCT-GLUCOSE [id number] 06:56:00* Test Item Value Reference Range Comments POC-GLUCOSE METER (BEAKER) (test wbfg=6745) 104 mg/dL 70-110 TESTED AT [place] [id number] [facility] [address] POCT-GLUCOSE [id number] 23:07:00* Test Item Value Reference Range Comments POC-GLUCOSE METER (BEAKER) (test oqcv=4742) 85 mg/dL 70-110 TESTED AT [place] [id number] [facility] [address] BASIC METABOLIC [id number] 19:12:00* Test Item Value Reference Range Comments SODIUM (BEAKER) (test mzit=997) 132 meq/L 136-145 POTASSIUM (BEAKER) (test butw=889) 4.5 meq/L 3.5-5.1 CHLORIDE (BEAKER) (test nnxs=618) 97 meq/L 98-107 CO2 (BEAKER) (test dxew=505) 28 meq/L 22-29 BLOOD UREA NITROGEN (BEAKER) (test qbav=599) 30 mg/dL 7-21 CREATININE (BEAKER) (test ysau=631) 6.02 mg/dL 0.57-1.25 GLUCOSE RANDOM (BEAKER) (test sgbz=445) 115 mg/dL 70-105 CALCIUM (BEAKER) (test pvpy=901) 8.7 mg/dL 8.4-10.2 EGFR (BEAKER) (test fpwi=5285) 7 mL/min/1.73 sq m ESTIMATED GFR IS NOT ACCURATE CREATININE CLEARANCE IN PREDICTING GLOMERULAR FILTRATION RATE. ESTIMATED GFR IS NOT APPLICABLE FOR DIALYSIS PATIENTS. Draw at start of HD on day of HD if not yet sent for that day.For use at start o f hemodialysis treatment during day of HD. Floor nurse should not touch this order pre dialysis treatment or else the dialysis nurse will not be able to see this order.If BMP has been done earlier on day of HD, but there is no magnesium, call lab to add magnesium and do it downtime.Draw at start of HD on day of HD if labs not yet sent for that day.For use at start of hemodialysis treatment dur ing day of HD. Floor nurse should not touch this order pre dialysis treatment or else the dialysis nurse will not be able to see this order.Routine. If BMP srinivasan s been done earlier on day of HD, but there is no phosphorus, call lab to add ph osphorus, and do it downtime from previous sample sent.Draw at start of HD on da y of HD if labs not yet sent for that day.For use at start of hemodialysis chrissy tment during day of HD. Floor nurse should not touch this order pre dialysis t reatment or else the dialysis nurse will not be able to see this order. [id number] 18:54:00* Test Item Value Reference Range Comments PHOSPHORUS CAROLINE) (test onnw=375) 3.6 mg/dL 2.3-4.7 Draw at start of HD on day of HD if not yet sent for that day.For use at start o f hemodialysis treatment during day of HD. Floor nurse should not touch this order pre dialysis treatment or else the dialysis nurse will not be able to see this order.If BMP has been done earlier on day of HD, but there is no magnesium, call lab to add magnesium and do it downtime.Draw at start of HD on day of HD if labs not yet sent for that day.For use at start of hemodialysis treatment dur ing day of HD. Floor nurse should not touch this order pre dialysis treatment or else the dialysis nurse will not be able to see this order.Routine. If BMP srinivasan s been done earlier on day of HD, but there is no phosphorus, call lab to add ph osphorus, and do it downtime from previous sample sent.Draw at start of HD on da y of HD if labs not yet sent for that day.For use at start of hemodialysis chrissy tment during day of HD. Floor nurse should not touch this order pre dialysis t reatment or else the dialysis nurse will not be able to see this order.MAGNESIUM 2017-01-06 18:54:00* Test Item Value Reference Range Comments MAGNESIUM CAROLINE) (test lobe=581) 1.9 mg/dL 1.6-2.6 Draw at start of HD on day of HD if not yet sent for that day.For use at start o f hemodialysis treatment during day of HD. Floor nurse should not touch this order pre dialysis treatment or else the dialysis nurse will not be able to see this order.If BMP has been done earlier on day of HD, but there is no magnesium, call lab to add magnesium and do it downtime.Draw at start of HD on day of HD if labs not yet sent for that day.For use at start of hemodialysis treatment dur ing day of HD. Floor nurse should not touch this order pre dialysis treatment or else the dialysis nurse will not be able to see this order.Routine. If BMP srinivasan s been done earlier on day of HD, but there is no phosphorus, call lab to add ph osphorus, and do it downtime from previous sample sent.Draw at start of HD on da y of HD if labs not yet sent for that day.For use at start of hemodialysis chrissy tment during day of HD. Floor nurse should not touch this order pre dialysis t reatment or else the dialysis nurse will not be able to see this order.CBC W/PLT COUNT & AUTO [id number] 18:42:00* Test Item Value Reference Range Comments WHITE BLOOD CELL COUNT (BEAKER) (test sdhq=218) 7.7 K/ L 4.0-10.0 RED BLOOD CELL COUNT (BEAKER) (test aeis=552) 2.85 M/ L 4.00-5.00 HEMOGLOBIN (BEAKER) (test kdlh=624) 8.7 GM/DL 12.0-15.0 HEMATOCRIT (BEAKER) (test gxpd=973) 27.5 % 36.0-45.0 MEAN CORPUSCULAR VOLUME (BEAKER) (test twzj=579) 96.3 fL 82.0-99.0 MEAN CORPUSCULAR HEMOGLOBIN (BEAKER) (test ahwv=302) 30.6 pg 27.0-33.0 MEAN CORPUSCULAR HEMOGLOBIN CONC (BEAKER) (test bjcc=895) 31.8 GM/DL 32.0-36.0 RED CELL DISTRIBUTION WIDTH (BEAKER) (test uhbm=789) 13.3 % 10.3-14.2 PLATELET COUNT (BEAKER) (test jpid=038) 178 K/CU MM 150-430 MEAN PLATELET VOLUME (BEAKER) (test zlcb=799) 8.4 fL 6.5-10.5 NUCLEATED RED BLOOD CELLS (BEAKER) (test kwxk=630) 0 /100 WBC 0-0 NEUTROPHILS RELATIVE PERCENT (BEAKER) (test cohz=899) 68 % LYMPHOCYTES RELATIVE PERCENT (BEAKER) (test zpch=790) 19 % MONOCYTES RELATIVE PERCENT (BEAKER) (test iwxz=586) 10 % EOSINOPHILS RELATIVE PERCENT (BEAKER) (test oprt=158) 2 % BASOPHILS RELATIVE PERCENT (BEAKER) (test pkbi=108) 1 % NEUTROPHILS ABSOLUTE COUNT (BEAKER) (test bvjk=326) 5.22 K/ L 1.80-8.00 LYMPHOCYTES ABSOLUTE COUNT (BEAKER) (test qwfc=724) 1.47 K/ L 1.48-4.50 MONOCYTES ABSOLUTE COUNT (BEAKER) (test yndr=764) 0.77 K/ L 0.00-1.30 EOSINOPHILS ABSOLUTE COUNT (BEAKER) (test slyh=006) 0.17 K/ L 0.00-0.50 BASOPHILS ABSOLUTE COUNT (BEAKER) (test bogh=783) 0.07 K/ L 0.00-0.20 0.00POCT-GLUCOSE [id number] 16:53:00* Test Item Value Reference Range Comments POC-GLUCOSE METER (BEAKER) (test mbsv=2197) 88 mg/dL 70-110 TESTED AT [address] [address] POCT-GLUCOSE [id number] 11:26:00* Test Item Value Reference Range Comments POC-GLUCOSE METER (BEAKER) (test gfdf=1074) 87 mg/dL 70-110 TESTED AT [address] [address] POCT-GLUCOSE [id number] 06:59:00* Test Item Value Reference Range Comments POC-GLUCOSE METER (BEAKER) (test obva=2559) 91 mg/dL 70-110 TESTED AT [address] [address] POCT-GLUCOSE [id number] 20:47:00* Test Item Value Reference Range Comments POC-GLUCOSE METER (BEAKER) (test fwsq=9040) 119 mg/dL 70-110 TESTED AT [address] [address] POCT-GLUCOSE [id number] 17:08:00* Test Item Value Reference Range Comments POC-GLUCOSE METER (BEAKER) (test uqao=9935) 113 mg/dL 70-110 TESTED AT [address] [address] POCT-GLUCOSE [id number] 16:17:00* Test Item Value Reference Range Comments POC-GLUCOSE METER (BEAKER) (test nuua=3135) 106 mg/dL 70-110 TESTED AT [address] [address] POCT-GLUCOSE [id number] 11:36:00* Test Item Value Reference Range Comments POC-GLUCOSE METER (BEAKER) (test jwwu=0882) 103 mg/dL 70-110 TESTED AT [address] [address] POCT-GLUCOSE [id number] 07:22:00* Test Item Value Reference Range Comments POC-GLUCOSE METER (BEAKER) (test btmr=7698) 83 mg/dL 70-110 TESTED AT [address] [address] POCT-GLUCOSE [id number] 21:23:00* Test Item Value Reference Range Comments POC-GLUCOSE METER (BEAKER) (test vjgx=4840) 125 mg/dL 70-110 TESTED AT [address] [address] BASIC METABOLIC [id number] 14:23:00* Test Item Value Reference Range Comments SODIUM (BEAKER) (test puvu=918) 134 meq/L 136-145 POTASSIUM (BEAKER) (test xttk=816) 4.3 meq/L 3.5-5.1 CHLORIDE (BEAKER) (test jqft=821) 98 meq/L 98-107 CO2 (BEAKER) (test pcle=769) 27 meq/L 22-29 BLOOD UREA NITROGEN (BEAKER) (test ekly=659) 23 mg/dL 7-21 CREATININE (BEAKER) (test gzze=800) 5.41 mg/dL 0.57-1.25 GLUCOSE RANDOM (BEAKER) (test nbrw=369) 108 mg/dL 70-105 CALCIUM (BEAKER) (test dopj=875) 7.9 mg/dL 8.4-10.2 EGFR (BEAKER) (test zrxn=1306) 8 mL/min/1.73 sq m ESTIMATED GFR IS NOT ACCURATE CREATININE CLEARANCE IN PREDICTING GLOMERULAR FILTRATION RATE. ESTIMATED GFR IS NOT APPLICABLE FOR DIALYSIS PATIENTS. Draw at start of HD on day of HD if not yet sent for that day.For use at start o f hemodialysis treatment during day of HD. Floor nurse should not touch this order pre dialysis treatment or else the dialysis nurse will not be able to see this order.If BMP has been done earlier on day of HD, but there is no magnesium, call lab to add magnesium and do it downtime.Draw at start of HD on day of HD if labs not yet sent for that day.For use at start of hemodialysis treatment dur ing day of HD. Floor nurse should not touch this order pre dialysis treatment or else the dialysis nurse will not be able to see this order.Routine. If BMP srinivasan s been done earlier on day of HD, but there is no phosphorus, call lab to add ph osphorus, and do it downtime from previous sample sent.Draw at start of HD on da y of HD if labs not yet sent for that day.For use at start of hemodialysis chrissy tment during day of HD. Floor nurse should not touch this order pre dialysis t reatment or else the dialysis nurse will not be able to see this order. [id number] 14:17:00* Test Item Value Reference Range Comments PHOSPHORUS (DISHAAKER) (test vgml=075) 4.2 mg/dL 2.3-4.7 Draw at start of HD on day of HD if not yet sent for that day.For use at start o f hemodialysis treatment during day of HD. Floor nurse should not touch this order pre dialysis treatment or else the dialysis nurse will not be able to see this order.If BMP has been done earlier on day of HD, but there is no magnesium, call lab to add magnesium and do it downtime.Draw at start of HD on day of HD if labs not yet sent for that day.For use at start of hemodialysis treatment dur ing day of HD. Floor nurse should not touch this order pre dialysis treatment or else the dialysis nurse will not be able to see this order.Routine. If BMP srinivasan s been done earlier on day of HD, but there is no phosphorus, call lab to add ph osphorus, and do it downtime from previous sample sent.Draw at start of HD on da y of HD if labs not yet sent for that day.For use at start of hemodialysis chrissy tment during day of HD. Floor nurse should not touch this order pre dialysis t reatment or else the dialysis nurse will not be able to see this order.MAGNESIUM 2017-01-04 14:17:00* Test Item Value Reference Range Comments MAGNESIUM (BEAKER) (test thpd=811) 1.8 mg/dL 1.6-2.6 Draw at start of HD on day of HD if not yet sent for that day.For use at start o f hemodialysis treatment during day of HD. Floor nurse should not touch this order pre dialysis treatment or else the dialysis nurse will not be able to see this order.If BMP has been done earlier on day of HD, but there is no magnesium, call lab to add magnesium and do it downtime.Draw at start of HD on day of HD if labs not yet sent for that day.For use at start of hemodialysis treatment dur ing day of HD. Floor nurse should not touch this order pre dialysis treatment or else the dialysis nurse will not be able to see this order.Routine. If BMP srinivasan s been done earlier on day of HD, but there is no phosphorus, call lab to add ph osphorus, and do it downtime from previous sample sent.Draw at start of HD on da y of HD if labs not yet sent for that day.For use at start of hemodialysis chrissy tment during day of HD. Floor nurse should not touch this order pre dialysis t reatment or else the dialysis nurse will not be able to see this order.CBC W/PLT COUNT & AUTO [id number] 14:08:00* Test Item Value Reference Range Comments WHITE BLOOD CELL COUNT (BEAKER) (test asqz=536) 6.0 K/ L 4.0-10.0 RED BLOOD CELL COUNT (BEAKER) (test baqm=679) 3.08 M/ L 4.00-5.00 HEMOGLOBIN (BEAKER) (test qufe=390) 9.5 GM/DL 12.0-15.0 HEMATOCRIT (BEAKER) (test mirf=465) 29.6 % 36.0-45.0 MEAN CORPUSCULAR VOLUME (BEAKER) (test pcnp=459) 96.1 fL 82.0-99.0 MEAN CORPUSCULAR HEMOGLOBIN (BEAKER) (test smhm=546) 31.0 pg 27.0-33.0 MEAN CORPUSCULAR HEMOGLOBIN CONC (BEAKER) (test mjkr=730) 32.2 GM/DL 32.0-36.0 RED CELL DISTRIBUTION WIDTH (BEAKER) (test csgh=962) 13.4 % 10.3-14.2 PLATELET COUNT (BEAKER) (test stxd=762) 178 K/CU MM 150-430 MEAN PLATELET VOLUME (BEAKER) (test wqne=768) 8.2 fL 6.5-10.5 NUCLEATED RED BLOOD CELLS (BEAKER) (test rwva=369) 0 /100 WBC 0-0 NEUTROPHILS RELATIVE PERCENT (BEAKER) (test qmfw=042) 60 % LYMPHOCYTES RELATIVE PERCENT (BEAKER) (test scdk=300) 26 % MONOCYTES RELATIVE PERCENT (BEAKER) (test vnta=203) 11 % EOSINOPHILS RELATIVE PERCENT (BEAKER) (test jfti=437) 3 % BASOPHILS RELATIVE PERCENT (BEAKER) (test axpd=893) 0 % NEUTROPHILS ABSOLUTE COUNT (BEAKER) (test carf=880) 3.58 K/ L 1.80-8.00 LYMPHOCYTES ABSOLUTE COUNT (BEAKER) (test jxie=663) 1.54 K/ L 1.48-4.50 MONOCYTES ABSOLUTE COUNT (BEAKER) (test zlxp=627) 0.64 K/ L 0.00-1.30 EOSINOPHILS ABSOLUTE COUNT (BEAKER) (test uvdk=731) 0.20 K/ L 0.00-0.50 BASOPHILS ABSOLUTE COUNT (BEAKER) (test ruos=667) 0.03 K/ L 0.00-0.20 0.00POCT-GLUCOSE [id number] 11:22:00* Test Item Value Reference Range Comments POC-GLUCOSE METER (BEAKER) (test aivs=4864) 98 mg/dL 70-110 TESTED AT [place] [id number] [facility] [address] POCT-GLUCOSE [id number] 07:22:00* Test Item Value Reference Range Comments POC-GLUCOSE METER (BEAKER) (test dama=5037) 86 mg/dL 70-110 TESTED AT [place] [id number] [facility] [address] POCT-GLUCOSE [id number] 20:33:00* Test Item Value Reference Range Comments POC-GLUCOSE METER (BEAKER) (test tngh=7789) 117 mg/dL 70-110 TESTED AT [address] [address] POCT-GLUCOSE [id number] 16:30:00* Test Item Value Reference Range Comments POC-GLUCOSE METER (BEAKER) (test kfds=1516) 125 mg/dL 70-110 TESTED AT [address] [address] POCT-GLUCOSE [id number] 11:22:00* Test Item Value Reference Range Comments POC-GLUCOSE METER (BEAKER) (test xoso=6000) 112 mg/dL 70-110 TESTED AT [address] [address] POCT-GLUCOSE [id number] 09:54:00* Test Item Value Reference Range Comments POC-GLUCOSE METER (BEAKER) (test ibpa=9840) 105 mg/dL 70-110 TESTED AT [address] [address] POCT-GLUCOSE [id number] 07:24:00* Test Item Value Reference Range Comments POC-GLUCOSE METER (BEAKER) (test dmfy=9381) 102 mg/dL 70-110 TESTED AT [address] [address] POCT-GLUCOSE [id number] 21:22:00* Test Item Value Reference Range Comments POC-GLUCOSE METER (BEAKER) (test dwrk=5279) 125 mg/dL 70-110 TESTED AT [address] [address] POCT-GLUCOSE [id number] 18:33:00* Test Item Value Reference Range Comments POC-GLUCOSE METER (BEAKER) (test qnqg=2335) 114 mg/dL 70-110 TESTED AT [address] [address] POCT-GLUCOSE [id number] 13:14:00* Test Item Value Reference Range Comments POC-GLUCOSE METER (BEAKER) (test zdlz=6263) 86 mg/dL 70-110 TESTED AT [address] [address] BASIC METABOLIC [id number] 09:53:00* Test Item Value Reference Range Comments SODIUM (BEAKER) (test lnyp=645) 133 meq/L 136-145 POTASSIUM (BEAKER) (test rlhd=823) 4.8 meq/L 3.5-5.1 CHLORIDE (BEAKER) (test nemg=289) 98 meq/L 98-107 CO2 (BEAKER) (test puki=829) 26 meq/L 22-29 BLOOD UREA NITROGEN (BEAKER) (test dcle=554) 29 mg/dL 7-21 CREATININE (BEAKER) (test weci=213) 6.15 mg/dL 0.57-1.25 GLUCOSE RANDOM (KATE) (test zqpm=237) 103 mg/dL 70-105 CALCIUM (KATE) (test ohlk=406) 8.0 mg/dL 8.4-10.2 EGFR (KATE) (test evnu=3641) 7 mL/min/1.73 sq m ESTIMATED GFR IS NOT ACCURATE CREATININE CLEARANCE IN PREDICTING GLOMERULAR FILTRATION RATE. ESTIMATED GFR IS NOT APPLICABLE FOR DIALYSIS PATIENTS. Draw at start of HD on day of HD if not yet sent for that day.For use at start o f hemodialysis treatment during day of HD. Floor nurse should not touch this order pre dialysis treatment or else the dialysis nurse will not be able to see this order.If BMP has been done earlier on day of HD, but there is no magnesium, call lab to add magnesium and do it downtime.Draw at start of HD on day of HD if labs not yet sent for that day.For use at start of hemodialysis treatment dur ing day of HD. Floor nurse should not touch this order pre dialysis treatment or else the dialysis nurse will not be able to see this order.Routine. If BMP srinivasan s been done earlier on day of HD, but there is no phosphorus, call lab to add ph osphorus, and do it downtime from previous sample sent.Draw at start of HD on da y of HD if labs not yet sent for that day.For use at start of hemodialysis chrissy tment during day of HD. Floor nurse should not touch this order pre dialysis t reatment or else the dialysis nurse will not be able to see this order. [id number] 09:52:00* Test Item Value Reference Range Comments PHOSPHORUS (KATE) (test tryq=269) 4.4 mg/dL 2.3-4.7 Draw at start of HD on day of HD if not yet sent for that day.For use at start o f hemodialysis treatment during day of HD. Floor nurse should not touch this order pre dialysis treatment or else the dialysis nurse will not be able to see this order.If BMP has been done earlier on day of HD, but there is no magnesium, call lab to add magnesium and do it downtime.Draw at start of HD on day of HD if labs not yet sent for that day.For use at start of hemodialysis treatment dur ing day of HD. Floor nurse should not touch this order pre dialysis treatment or else the dialysis nurse will not be able to see this order.Routine. If BMP srinivasan s been done earlier on day of HD, but there is no phosphorus, call lab to add ph osphorus, and do it downtime from previous sample sent.Draw at start of HD on da y of HD if labs not yet sent for that day.For use at start of hemodialysis chrissy tment during day of HD. Floor nurse should not touch this order pre dialysis t reatment or else the dialysis nurse will not be able to see this order.MAGNESIUM 2017-01-02 09:52:00* Test Item Value Reference Range Comments MAGNESIUM (BEAKER) (test btao=754) 2.0 mg/dL 1.6-2.6 Draw at start of HD on day of HD if not yet sent for that day.For use at start o f hemodialysis treatment during day of HD. Floor nurse should not touch this order pre dialysis treatment or else the dialysis nurse will not be able to see this order.If BMP has been done earlier on day of HD, but there is no magnesium, call lab to add magnesium and do it downtime.Draw at start of HD on day of HD if labs not yet sent for that day.For use at start of hemodialysis treatment dur ing day of HD. Floor nurse should not touch this order pre dialysis treatment or else the dialysis nurse will not be able to see this order.Routine. If BMP srinivasan s been done earlier on day of HD, but there is no phosphorus, call lab to add ph osphorus, and do it downtime from previous sample sent.Draw at start of HD on da y of HD if labs not yet sent for that day.For use at start of hemodialysis chrissy tment during day of HD. Floor nurse should not touch this order pre dialysis t reatment or else the dialysis nurse will not be able to see this order.CBC W/PLT COUNT & AUTO [id number] 09:23:00* Test Item Value Reference Range Comments WHITE BLOOD CELL COUNT (BEAKER) (test kque=300) 6.4 K/ L 4.0-10.0 RED BLOOD CELL COUNT (BEAKER) (test phho=778) 3.32 M/ L 4.00-5.00 HEMOGLOBIN (BEAKER) (test fhcf=594) 10.3 GM/DL 12.0-15.0 HEMATOCRIT (BEAKER) (test ffhx=357) 32.2 % 36.0-45.0 MEAN CORPUSCULAR VOLUME (BEAKER) (test kacm=154) 96.8 fL 82.0-99.0 MEAN CORPUSCULAR HEMOGLOBIN (BEAKER) (test fedw=398) 31.1 pg 27.0-33.0 MEAN CORPUSCULAR HEMOGLOBIN CONC (BEAKER) (test uney=562) 32.1 GM/DL 32.0-36.0 RED CELL DISTRIBUTION WIDTH (BEAKER) (test asdg=298) 12.6 % 10.3-14.2 PLATELET COUNT (BEAKER) (test mftj=760) 185 K/CU MM 150-430 MEAN PLATELET VOLUME (BEAKER) (test xvzb=632) 8.2 fL 6.5-10.5 NUCLEATED RED BLOOD CELLS (BEAKER) (test jzof=396) 0 /100 WBC 0-0 NEUTROPHILS RELATIVE PERCENT (BEAKER) (test vbgc=370) 58 % LYMPHOCYTES RELATIVE PERCENT (BEAKER) (test axsa=553) 26 % MONOCYTES RELATIVE PERCENT (BEAKER) (test hkyq=172) 13 % EOSINOPHILS RELATIVE PERCENT (BEAKER) (test jesi=589) 3 % BASOPHILS RELATIVE PERCENT (BEAKER) (test lcgm=349) 0 % NEUTROPHILS ABSOLUTE COUNT (BEAKER) (test kmok=315) 3.72 K/ L 1.80-8.00 LYMPHOCYTES ABSOLUTE COUNT (BEAKER) (test fszm=653) 1.64 K/ L 1.48-4.50 MONOCYTES ABSOLUTE COUNT (BEAKER) (test qizi=682) 0.85 K/ L 0.00-1.30 EOSINOPHILS ABSOLUTE COUNT (BEAKER) (test esgk=930) 0.21 K/ L 0.00-0.50 BASOPHILS ABSOLUTE COUNT (BEAKER) (test hbvy=203) 0.01 K/ L 0.00-0.20 0.00POCT-GLUCOSE [id number] 07:53:00* Test Item Value Reference Range Comments POC-GLUCOSE METER (BEAKER) (test dzva=1258) 115 mg/dL 70-110 TESTED AT [facility] [address] [facility] [address] POCT-GLUCOSE [id number] 21:17:00* Test Item Value Reference Range Comments POC-GLUCOSE METER (BEAKER) (test yrqp=8756) 149 mg/dL 70-110 TESTED AT [address] [address] POCT-GLUCOSE [id number] 17:42:00* Test Item Value Reference Range Comments POC-GLUCOSE METER (BEAKER) (test smsd=0383) 111 mg/dL 70-110 TESTED AT [address] [address] POCT-GLUCOSE [id number] 12:10:00* Test Item Value Reference Range Comments POC-GLUCOSE METER (BEAKER) (test pbki=6886) 120 mg/dL 70-110 TESTED AT [address] [address] POCT-GLUCOSE [id number] 06:54:00* Test Item Value Reference Range Comments POC-GLUCOSE METER (BEAKER) (test oyao=8947) 120 mg/dL 70-110 TESTED AT [address] [address] POCT-GLUCOSE [id number] 06:29:00* Test Item Value Reference Range Comments POC-GLUCOSE METER (BEAKER) (test ztcl=8434) 120 mg/dL 70-110 TESTED AT [address] [address] POCT-GLUCOSE [id number] 00:31:00* Test Item Value Reference Range Comments POC-GLUCOSE METER (BEAKER) (test kuyw=1654) 96 mg/dL 70-110 TESTED AT [place] [id number] 21:36:00* Test Item Value Reference Range Comments SODIUM (BEAKER) (test jipl=080) 137 meq/L 136-145 POCT-GLUCOSE [id number] 18:54:00* Test Item Value Reference Range Comments POC-GLUCOSE METER (BEAKER) (test arrm=3492) 117 mg/dL 70-110 TESTED AT [address] [address] HEMOGLOBIN [id number] 14:42:00* Test Item Value Reference Range Comments HEMOGLOBIN A1C (BEAKER) (test jncn=027) 6.0 % 4.3-6.1 [id number] 14:36:00* Test Item Value Reference Range Comments SODIUM (BEAKER) (test kixy=800) 139 meq/L 136-145 TROPONIN [id number] 13:28:00* Test Item Value Reference Range Comments TROPONIN I (BEAKER) (test yvfo=064) 0.02 ng/mL 0.00-0.03 Effective 07/21/2014: Reference Range ChangeNew: 0.00-0.03 Previous 0.00-0.15T roponin I (TnI) levels must be interpreted in the context of the presenting symp toms and the clinical findings. Elevated TnI levels indicate myocardial damage, but are not specific for ischemic heart disease. Elevated TnI levels are seen in patients with other cardiac conditions (including myocarditis and congestive he art failure), and slight TnI elevations occur in patients with other conditions, including sepsis, renal failure, acidosis, acute neurological disease, and pers istent tachyarrhythmia.POCT-GLUCOSE [id number] 12:04:00* Test Item Value Reference Range Comments POC-GLUCOSE METER (BEAKER) (test adcy=4177) 100 mg/dL 70-110 TESTED AT [facility] [address] [facility] [address] TSH/FREE T4 IF [id number] 07:06:00* Test Item Value Reference Range Comments THYROID STIMULATING HORMONE (BEAKER) (test wfut=917) 2.23 uIU/mL 0.35-4.94 BASIC METABOLIC [id number] 06:49:00* Test Item Value Reference Range Comments SODIUM (BEAKER) (test lcsv=775) 128 meq/L 136-145 POTASSIUM (BEAKER) (test hjom=625) 6.0 meq/L 3.5-5.1 CHLORIDE (BEAKER) (test xkor=013) 96 meq/L 98-107 CO2 (BEAKER) (test lcpj=363) 21 meq/L 22-29 BLOOD UREA NITROGEN (BEAKER) (test eila=926) 36 mg/dL 7-21 CREATININE (BEAKER) (test qvei=818) 7.02 mg/dL 0.57-1.25 GLUCOSE RANDOM (BEAKER) (test usap=804) 111 mg/dL 70-105 CALCIUM (BEAKER) (test erym=390) 8.0 mg/dL 8.4-10.2 EGFR (BEAKER) (test tuqf=1135) 6 mL/min/1.73 sq m ESTIMATED GFR IS NOT ACCURATE CREATININE CLEARANCE IN PREDICTING GLOMERULAR FILTRATION RATE. ESTIMATED GFR IS NOT APPLICABLE FOR DIALYSIS PATIENTS. [id number] 06:35:00* Test Item Value Reference Range Comments PHOSPHORUS (BEAKER) (test mtdp=765) 4.5 mg/dL 2.3-4.7 [id number] 06:35:00* Test Item Value Reference Range Comments MAGNESIUM (BEAKER) (test hhis=382) 2.1 mg/dL 1.6-2.6 LIPID [id number] 06:35:00* Test Item Value Reference Range Comments TRIGLYCERIDES (BEAKER) (test vznr=844) 45 mg/dL CHOLESTEROL (BEAKER) (test gfrl=332) 96 mg/dL HDL CHOLESTEROL (BEAKER) (test dkwc=401) 39 mg/dL LDL CHOLESTEROL CALCULATED (BEAKER) (test drgm=267) 48 mg/dL Triglyceride Reference Range: Low Risk <150 Borderline 150-199 High Risk 200-499 Very High Risk >=500Cholesterol Reference Range: Low Risk <200 Borderline 200-239 High Risk >240HDL Cholesterol Reference Range: Low Risk >=60 High Risk <40LDL Cholesterol Reference Range: Optimal <100 Near Optimal 100-129 Borderline 130-159 High 160-189 Very High >=190 TROPONIN [id number] 06:35:00* Test Item Value Reference Range Comments TROPONIN I (BEAKER) (test zoso=704) 0.02 ng/mL 0.00-0.03 Effective 07/21/2014: Reference Range ChangeNew: 0.00-0.03 Previous 0.00-0.15T roponin I (TnI) levels must be interpreted in the context of the presenting symp toms and the clinical findings. Elevated TnI levels indicate myocardial damage, but are not specific for ischemic heart disease. Elevated TnI levels are seen in patients with other cardiac conditions (including myocarditis and congestive he art failure), and slight TnI elevations occur in patients with other conditions, including sepsis, renal failure, acidosis, acute neurological disease, and pers istent tachyarrhythmia.CBC (HEMOGRAM ONLY)2016-12-31 06:04:00* Test Item Value Reference Range Comments WHITE BLOOD CELL COUNT (BEAKER) (test jqgr=118) 6.4 K/ L 4.0-10.0 RED BLOOD CELL COUNT (BEAKER) (test ypag=275) 3.45 M/ L 4.00-5.00 HEMOGLOBIN (BEAKER) (test cafm=444) 11.0 GM/DL 12.0-15.0 HEMATOCRIT (BEAKER) (test uiya=844) 32.5 % 36.0-45.0 MEAN CORPUSCULAR VOLUME (BEAKER) (test fxbj=912) 94.0 fL 82.0-99.0 MEAN CORPUSCULAR HEMOGLOBIN (BEAKER) (test uqvh=307) 31.8 pg 27.0-33.0 MEAN CORPUSCULAR HEMOGLOBIN CONC (BEAKER) (test ingr=485) 33.8 GM/DL 32.0-36.0 RED CELL DISTRIBUTION WIDTH (BEAKER) (test asfd=798) 13.3 % 10.3-14.2 PLATELET COUNT (BEAKER) (test yren=503) 163 K/CU MM 150-430 MEAN PLATELET VOLUME (BEAKER) (test jmof=268) 8.3 fL 6.5-10.5 NUCLEATED RED BLOOD CELLS (BEAKER) (test euja=593) 0 /100 WBC 0-0 0.00PROTHROMBIN [id number] 22:47:00* Test Item Value Reference Range Comments PROTIME (BEAKER) (test nrao=088) 13.5 seconds 11.7-14.7 INR (BEAKER) (test ltxj=368) 1.0 <=5.9 RECOMMENDED COUMADIN/WARFARIN INR THERAPY RANGESSTANDARD DOSE: 2.0 - 3.0 Inclu jessika: PROPHYLAXIS for venous thrombosis, systemic embolization; TREATMENT for lora ous thrombosis and/or pulmonary embolus.HIGH RISK: Target INR is 2.5-3.5 for pat ients with mechanical heart valves.CREATINE KINASE (CK), TOTAL AND [id number] 21:18:00* Test Item Value Reference Range Comments CREATINE KINASE TOTAL (BEAKER) (test puld=951) 45 U/L 29-200 CREATINE KINASE-MB (BEAKER) (test gvmo=106) 1.3 ng/mL 0.0-6.6 CREATINE KINASE-MB INDEX (BEAKER) (test rkln=616) 2.9 % Effective 07/21/2014: CK-MB Reference Range ChangeNew: 0.0-6.6 Previous: 0.0- 4.9CK-MB Reference Range:<6.7 Normal6.7-10.0 Borderline>10.0 Abnormal TROPONIN [id number] 21:18:00* Test Item Value Reference Range Comments TROPONIN I (BEAKER) (test lund=403) 0.02 ng/mL 0.00-0.03 Effective 07/21/2014: Reference Range ChangeNew: 0.00-0.03 Previous 0.00-0.15T roponin I (TnI) levels must be interpreted in the context of the presenting symp toms and the clinical findings. Elevated TnI levels indicate myocardial damage, but are not specific for ischemic heart disease. Elevated TnI levels are seen in patients with other cardiac conditions (including myocarditis and congestive he art failure), and slight TnI elevations occur in patients with other conditions, including sepsis, renal failure, acidosis, acute neurological disease, and pers istent tachyarrhythmia.HEPATIC FUNCTION [id number] 21:12:00* Test Item Value Reference Range Comments TOTAL PROTEIN (BEAKER) (test iphy=159) 6.9 gm/dL 6.0-8.3 ALBUMIN (BEAKER) (test totw=3771) 3.4 g/dL 3.5-5.0 BILIRUBIN TOTAL (BEAKER) (test tzfn=843) 0.4 mg/dL 0.2-1.2 BILIRUBIN DIRECT (BEAKER) (test notc=174) 0.2 mg/dL 0.1-0.5 ALKALINE PHOSPHATASE (BEAKER) (test wjkx=696) 173 U/L 40-150 AST (SGOT) (BEAKER) (test apfm=679) 19 U/L 5-34 ALT (SGPT) (BEAKER) (test hasc=627) 11 U/L 6-55 [id number] 21:12:00* Test Item Value Reference Range Comments LIPASE (BEAKER) (test zedm=699) 11 U/L 8-78 BASIC METABOLIC [id number] 18:32:00* Test Item Value Reference Range Comments SODIUM (BEAKER) (test dkmy=633) 129 meq/L 136-145 POTASSIUM (BEAKER) (test halk=416) 5.3 meq/L 3.5-5.1 CHLORIDE (BEAKER) (test gynl=674) 96 meq/L 98-107 CO2 (BEAKER) (test rwzh=393) 23 meq/L 22-29 BLOOD UREA NITROGEN (BEAKER) (test tyab=607) 31 mg/dL 7-21 CREATININE (BEAKER) (test sejk=729) 6.54 mg/dL 0.57-1.25 GLUCOSE RANDOM (BEAKER) (test uioh=091) 110 mg/dL 70-105 CALCIUM (BEAKER) (test boie=992) 8.3 mg/dL 8.4-10.2 EGFR (BEAKER) (test tnvc=0612) 6 mL/min/1.73 sq m ESTIMATED GFR IS NOT ACCURATE CREATININE CLEARANCE IN PREDICTING GLOMERULAR FILTRATION RATE. ESTIMATED GFR IS NOT APPLICABLE FOR DIALYSIS PATIENTS. CBC W/PLT COUNT & AUTO [id number] 18:16:00* Test Item Value Reference Range Comments WHITE BLOOD CELL COUNT (BEAKER) (test kijv=739) 7.2 K/ L 4.0-10.0 RED BLOOD CELL COUNT (BEAKER) (test ostj=428) 3.80 M/ L 4.00-5.00 HEMOGLOBIN (BEAKER) (test wuim=843) 11.8 GM/DL 12.0-15.0 HEMATOCRIT (BEAKER) (test ourj=825) 36.4 % 36.0-45.0 MEAN CORPUSCULAR VOLUME (BEAKER) (test uuur=190) 95.9 fL 82.0-99.0 MEAN CORPUSCULAR HEMOGLOBIN (BEAKER) (test zuue=971) 31.2 pg 27.0-33.0 MEAN CORPUSCULAR HEMOGLOBIN CONC (BEAKER) (test hsdh=339) 32.5 GM/DL 32.0-36.0 RED CELL DISTRIBUTION WIDTH (BEAKER) (test fkqe=115) 12.7 % 10.3-14.2 PLATELET COUNT (BEAKER) (test trqh=216) 171 K/CU MM 150-430 MEAN PLATELET VOLUME (BEAKER) (test znbg=937) 7.9 fL 6.5-10.5 NUCLEATED RED BLOOD CELLS (BEAKER) (test siew=824) 0 /100 WBC 0-0 NEUTROPHILS RELATIVE PERCENT (BEAKER) (test dppf=369) 61 % LYMPHOCYTES RELATIVE PERCENT (BEAKER) (test qace=032) 24 % MONOCYTES RELATIVE PERCENT (BEAKER) (test xhsb=656) 10 % EOSINOPHILS RELATIVE PERCENT (BEAKER) (test xoce=218) 4 % BASOPHILS RELATIVE PERCENT (BEAKER) (test zgvh=874) 0 % NEUTROPHILS ABSOLUTE COUNT (BEAKER) (test gmkk=694) 4.42 K/ L 1.80-8.00 LYMPHOCYTES ABSOLUTE COUNT (BEAKER) (test rxvv=446) 1.76 K/ L 1.48-4.50 MONOCYTES ABSOLUTE COUNT (BEAKER) (test ijpb=568) 0.75 K/ L 0.00-1.30 EOSINOPHILS ABSOLUTE COUNT (BEAKER) (test djlf=872) 0.27 K/ L 0.00-0.50 BASOPHILS ABSOLUTE COUNT (BEAKER) (test pomr=757) 0.02 K/ L 0.00-0.20 0.00POCT-GLUCOSE [id number] 18:09:00* Test Item Value Reference Range Comments POC-GLUCOSE METER (BEAKER) (test oobx=9648) 124 mg/dL 70-110 TESTED AT [facility] [address] [facility] [address] CBC W/PLT COUNT & AUTO [id number] 14:09:00* Test Item Value Reference Range Comments WHITE BLOOD CELL COUNT (BEAKER) (test bxam=825) 6.3 K/ L 4.0-10.0 RED BLOOD CELL COUNT (BEAKER) (test xnna=028) 3.68 M/ L 4.00-5.00 HEMOGLOBIN (BEAKER) (test qmwb=132) 11.7 GM/DL 12.0-15.0 HEMATOCRIT (BEAKER) (test exyi=784) 35.6 % 36.0-45.0 MEAN CORPUSCULAR VOLUME (BEAKER) (test roqk=482) 96.7 fL 82.0-99.0 MEAN CORPUSCULAR HEMOGLOBIN (BEAKER) (test ijdj=380) 31.9 pg 27.0-33.0 MEAN CORPUSCULAR HEMOGLOBIN CONC (BEAKER) (test swfv=485) 33.0 GM/DL 32.0-36.0 RED CELL DISTRIBUTION WIDTH (BEAKER) (test bvkv=992) 13.2 % 10.3-14.2 PLATELET COUNT (BEAKER) (test pnmw=779) 198 K/CU MM 150-430 MEAN PLATELET VOLUME (BEAKER) (test lruo=409) 8.1 fL 6.5-10.5 NUCLEATED RED BLOOD CELLS (BEAKER) (test yrgs=376) 0 /100 WBC 0-0 NEUTROPHILS RELATIVE PERCENT (BEAKER) (test edaf=392) 60 % LYMPHOCYTES RELATIVE PERCENT (BEAKER) (test wyae=573) 25 % MONOCYTES RELATIVE PERCENT (BEAKER) (test tkdi=051) 12 % EOSINOPHILS RELATIVE PERCENT (BEAKER) (test zzts=459) 2 % BASOPHILS RELATIVE PERCENT (BEAKER) (test maye=539) 1 % NEUTROPHILS ABSOLUTE COUNT (BEAKER) (test lqqq=077) 3.74 K/ L 1.80-8.00 LYMPHOCYTES ABSOLUTE COUNT (BEAKER) (test gimq=341) 1.58 K/ L 1.48-4.50 MONOCYTES ABSOLUTE COUNT (BEAKER) (test bpta=130) 0.74 K/ L 0.00-1.30 EOSINOPHILS ABSOLUTE COUNT (BEAKER) (test ozxg=984) 0.15 K/ L 0.00-0.50 BASOPHILS ABSOLUTE COUNT (BEAKER) (test sfxj=534) 0.04 K/ L 0.00-0.20 0.00BASIC METABOLIC [id number] 13:49:00* Test Item Value Reference Range Comments SODIUM (BEAKER) (test tmta=984) 133 meq/L 136-145 POTASSIUM (BEAKER) (test nmvj=062) 5.0 meq/L 3.5-5.1 CHLORIDE (BEAKER) (test yquv=060) 97 meq/L 98-107 CO2 (BEAKER) (test qwpr=753) 25 meq/L 22-29 BLOOD UREA NITROGEN (BEAKER) (test uenk=694) 28 mg/dL 7-21 CREATININE (BEAKER) (test thgg=428) 6.73 mg/dL 0.57-1.25 GLUCOSE RANDOM (BEAKER) (test heqd=429) 106 mg/dL 70-105 CALCIUM (BEAKER) (test czxc=375) 8.2 mg/dL 8.4-10.2 EGFR (BEAKER) (test uuqh=2178) 6 mL/min/1.73 sq m ESTIMATED GFR IS NOT ACCURATE CREATININE CLEARANCE IN PREDICTING GLOMERULAR FILTRATION RATE. ESTIMATED GFR IS NOT APPLICABLE FOR DIALYSIS PATIENTS. Draw at start of HD on day of HD if not yet sent for that day.For use at start o f hemodialysis treatment during day of HD. Floor nurse should not touch this order pre dialysis treatment or else the dialysis nurse will not be able to see this order.If BMP has been done earlier on day of HD, but there is no magnesium, call lab to add magnesium and do it downtime.Draw at start of HD on day of HD if labs not yet sent for that day.For use at start of hemodialysis treatment dur ing day of HD. Floor nurse should not touch this order pre dialysis treatment or else the dialysis nurse will not be able to see this order.Routine. If BMP srinivasan s been done earlier on day of HD, but there is no phosphorus, call lab to add ph osphorus, and do it downtime from previous sample sent.Draw at start of HD on da y of HD if labs not yet sent for that day.For use at start of hemodialysis chrissy tment during day of HD. Floor nurse should not touch this order pre dialysis t reatment or else the dialysis nurse will not be able to see this order. [id number] 13:46:00* Test Item Value Reference Range Comments PHOSPHORUS (DISHAAKER) (test tvnh=148) 4.6 mg/dL 2.3-4.7 Draw at start of HD on day of HD if not yet sent for that day.For use at start o f hemodialysis treatment during day of HD. Floor nurse should not touch this order pre dialysis treatment or else the dialysis nurse will not be able to see this order.If BMP has been done earlier on day of HD, but there is no magnesium, call lab to add magnesium and do it downtime.Draw at start of HD on day of HD if labs not yet sent for that day.For use at start of hemodialysis treatment dur ing day of HD. Floor nurse should not touch this order pre dialysis treatment or else the dialysis nurse will not be able to see this order.Routine. If BMP srinivasan s been done earlier on day of HD, but there is no phosphorus, call lab to add ph osphorus, and do it downtime from previous sample sent.Draw at start of HD on da y of HD if labs not yet sent for that day.For use at start of hemodialysis chrissy tment during day of HD. Floor nurse should not touch this order pre dialysis t reatment or else the dialysis nurse will not be able to see this order.MAGNESIUM 2016-12-26 13:46:00* Test Item Value Reference Range Comments MAGNESIUM (BEAKER) (test hmkj=475) 2.1 mg/dL 1.6-2.6 Draw at start of HD on day of HD if not yet sent for that day.For use at start o f hemodialysis treatment during day of HD. Floor nurse should not touch this order pre dialysis treatment or else the dialysis nurse will not be able to see this order.If BMP has been done earlier on day of HD, but there is no magnesium, call lab to add magnesium and do it downtime.Draw at start of HD on day of HD if labs not yet sent for that day.For use at start of hemodialysis treatment dur ing day of HD. Floor nurse should not touch this order pre dialysis treatment or else the dialysis nurse will not be able to see this order.Routine. If BMP srinivasan s been done earlier on day of HD, but there is no phosphorus, call lab to add ph osphorus, and do it downtime from previous sample sent.Draw at start of HD on da y of HD if labs not yet sent for that day.For use at start of hemodialysis chrissy tment during day of HD. Floor nurse should not touch this order pre dialysis t reatment or else the dialysis nurse will not be able to see this order.CBC W/PLT COUNT & AUTO [id number] 16:13:00* Test Item Value Reference Range Comments WHITE BLOOD CELL COUNT (BEAKER) (test qtqd=952) 5.4 K/ L 4.0-10.0 RED BLOOD CELL COUNT (BEAKER) (test txpw=323) 3.28 M/ L 4.00-5.00 HEMOGLOBIN (BEAKER) (test zbyi=594) 10.5 GM/DL 12.0-15.0 HEMATOCRIT (BEAKER) (test qopl=723) 32.1 % 36.0-45.0 MEAN CORPUSCULAR VOLUME (BEAKER) (test popr=687) 97.9 fL 82.0-99.0 MEAN CORPUSCULAR HEMOGLOBIN (BEAKER) (test qdff=141) 32.0 pg 27.0-33.0 MEAN CORPUSCULAR HEMOGLOBIN CONC (BEAKER) (test vqhg=999) 32.7 GM/DL 32.0-36.0 RED CELL DISTRIBUTION WIDTH (BEAKER) (test vxhp=311) 13.6 % 10.3-14.2 PLATELET COUNT (BEAKER) (test cltz=513) 192 K/CU MM 150-430 MEAN PLATELET VOLUME (BEAKER) (test cvmf=757) 7.8 fL 6.5-10.5 NUCLEATED RED BLOOD CELLS (BEAKER) (test spzz=164) 0 /100 WBC 0-0 NEUTROPHILS RELATIVE PERCENT (BEAKER) (test olpr=482) 54 % LYMPHOCYTES RELATIVE PERCENT (BEAKER) (test zgoq=333) 29 % MONOCYTES RELATIVE PERCENT (BEAKER) (test yqsl=155) 13 % EOSINOPHILS RELATIVE PERCENT (BEAKER) (test cwdg=358) 4 % BASOPHILS RELATIVE PERCENT (BEAKER) (test axsh=952) 1 % NEUTROPHILS ABSOLUTE COUNT (BEAKER) (test igsm=073) 2.89 K/ L 1.80-8.00 LYMPHOCYTES ABSOLUTE COUNT (BEAKER) (test kavb=365) 1.55 K/ L 1.48-4.50 MONOCYTES ABSOLUTE COUNT (BEAKER) (test qjei=543) 0.71 K/ L 0.00-1.30 EOSINOPHILS ABSOLUTE COUNT (BEAKER) (test tezf=760) 0.20 K/ L 0.00-0.50 BASOPHILS ABSOLUTE COUNT (BEAKER) (test fncg=594) 0.05 K/ L 0.00-0.20 0.00BASI METABOLIC [id number] 14:03:00* Test Item Value Reference Range Comments SODIUM (BEAKER) (test ozxg=678) 134 meq/L 136-145 POTASSIUM (BEAKER) (test pwkx=667) 5.5 meq/L 3.5-5.1 CHLORIDE (BEAKER) (test snej=819) 100 meq/L 98-107 CO2 (BEAKER) (test ixzm=572) 21 meq/L 22-29 BLOOD UREA NITROGEN (BEAKER) (test uyjo=579) 53 mg/dL 7-21 CREATININE (BEAKER) (test tbou=510) 9.04 mg/dL 0.57-1.25 GLUCOSE RANDOM (BEAKER) (test jwzh=846) 113 mg/dL 70-105 CALCIUM (BEAKER) (test cbtt=713) 7.9 mg/dL 8.4-10.2 EGFR (BEAKER) (test vdcd=5702) 4 mL/min/1.73 sq m ESTIMATED GFR IS NOT ACCURATE CREATININE CLEARANCE IN PREDICTING GLOMERULAR FILTRATION RATE. ESTIMATED GFR IS NOT APPLICABLE FOR DIALYSIS PATIENTS. Draw at start of HD on day of HD if not yet sent for that day.For use at start o f hemodialysis treatment during day of HD. Floor nurse should not touch this order pre dialysis treatment or else the dialysis nurse will not be able to see this order.If BMP has been done earlier on day of HD, but there is no magnesium, call lab to add magnesium and do it downtime.Draw at start of HD on day of HD if labs not yet sent for that day.For use at start of hemodialysis treatment dur ing day of HD. Floor nurse should not touch this order pre dialysis treatment or else the dialysis nurse will not be able to see this order.Routine. If BMP srinivasan s been done earlier on day of HD, but there is no phosphorus, call lab to add ph osphorus, and do it downtime from previous sample sent.Draw at start of HD on da y of HD if labs not yet sent for that day.For use at start of hemodialysis chrissy tment during day of HD. Floor nurse should not touch this order pre dialysis t reatment or else the dialysis nurse will not be able to see this order. [id number] 13:47:00* Test Item Value Reference Range Comments PHOSPHORUS (KATE) (test eifb=925) 4.9 mg/dL 2.3-4.7 Draw at start of HD on day of HD if not yet sent for that day.For use at start o f hemodialysis treatment during day of HD. Floor nurse should not touch this order pre dialysis treatment or else the dialysis nurse will not be able to see this order.If BMP has been done earlier on day of HD, but there is no magnesium, call lab to add magnesium and do it downtime.Draw at start of HD on day of HD if labs not yet sent for that day.For use at start of hemodialysis treatment dur ing day of HD. Floor nurse should not touch this order pre dialysis treatment or else the dialysis nurse will not be able to see this order.Routine. If BMP srinivasan s been done earlier on day of HD, but there is no phosphorus, call lab to add ph osphorus, and do it downtime from previous sample sent.Draw at start of HD on da y of HD if labs not yet sent for that day.For use at start of hemodialysis chrissy tment during day of HD. Floor nurse should not touch this order pre dialysis t reatment or else the dialysis nurse will not be able to see this order.MAGNESIUM 2016-12-25 13:47:00* Test Item Value Reference Range Comments MAGNESIUM (KATE) (test vjtx=385) 2.1 mg/dL 1.6-2.6 Draw at start of HD on day of HD if not yet sent for that day.For use at start o f hemodialysis treatment during day of HD. Floor nurse should not touch this order pre dialysis treatment or else the dialysis nurse will not be able to see this order.If BMP has been done earlier on day of HD, but there is no magnesium, call lab to add magnesium and do it downtime.Draw at start of HD on day of HD if labs not yet sent for that day.For use at start of hemodialysis treatment dur ing day of HD. Floor nurse should not touch this order pre dialysis treatment or else the dialysis nurse will not be able to see this order.Routine. If BMP srinivasan s been done earlier on day of HD, but there is no phosphorus, call lab to add ph osphorus, and do it downtime from previous sample sent.Draw at start of HD on da y of HD if labs not yet sent for that day.For use at start of hemodialysis chrissy tment during day of HD. Floor nurse should not touch this order pre dialysis t reatment or else the dialysis nurse will not be able to see this order.HEPATITIS B SURFACE [id number] 05:29:00* Test Item Value Reference Range Comments HEPATITIS B SURFACE ANTIGEN (2) (KATE) (test miih=4017) Nonreactive Nonreactive To lab: Do not do this or send sticker for this more than once every 30 days. La b. to please inform HD nurse not to send blood again if already sent within the past 30 days.For chronic HD patients, draw HBsAg ONCE ONLY with each admission T HEN every 30 days. Do this on day of dialysis if not yet done within the last 30 days. Do not stick patient separately just for this.Let hemodialysis nurse draw this please if not yet done within the last 30 days. Thanks.BASIC METABOLIC [id number] 15:08:00* Test Item Value Reference Range Comments SODIUM (BEAKER) (test edoe=937) 138 meq/L 136-145 POTASSIUM (BEAKER) (test oclm=388) 5.4 meq/L 3.5-5.1 Specimen slightly hemolyzed CHLORIDE (BEAKER) (test kwdf=255) 101 meq/L 98-107 CO2 (BEAKER) (test vife=856) 18 meq/L 22-29 BLOOD UREA NITROGEN (BEAKER) (test xqrr=379) 53 mg/dL 7-21 CREATININE (BEAKER) (test edsv=160) 8.52 mg/dL 0.57-1.25 Specimen slightly hemolyzed GLUCOSE RANDOM (BEAKER) (test rccn=979) 100 mg/dL 70-105 CALCIUM (BEAKER) (test ncki=992) 9.0 mg/dL 8.4-10.2 EGFR (BEAKER) (test qudy=0052) 5 mL/min/1.73 sq m ESTIMATED GFR IS NOT ACCURATE CREATININE CLEARANCE IN PREDICTING GLOMERULAR FILTRATION RATE. ESTIMATED GFR IS NOT APPLICABLE FOR DIALYSIS PATIENTS. ALKALINE [id number] 15:07:00* Test Item Value Reference Range Comments ALKALINE PHOSPHATASE (BEAKER) (test jthx=715) 234 U/L 40-150 Effective 07/21/2014: Alkaline Phosphatase Reference Range Change-Adult onlyNew: 40-150 Previous: [id number] 15:07:00* Test Item Value Reference Range Comments LIPASE (BEAKER) (test vztw=966) 9 U/L 8-78 ALT (SGPT)2016-12-24 15:07:00* Test Item Value Reference Range Comments ALT (SGPT) (BEAKER) (test xwzl=418) 11 U/L 6-55 Specimen slightly hemolyzed [id number] 15:07:00* Test Item Value Reference Range Comments AMYLASE (BEAKER) (test tyzj=657) 49 U/L 25-125 Specimen slightly hemolyzed AST (SGOT)2016-12-24 15:07:00* Test Item Value Reference Range Comments AST (SGOT) (BEAKER) (test anfq=707) 19 U/L 5-34 Specimen slightly hemolyzed CBC W/PLT COUNT & AUTO [id number] 13:49:00* Test Item Value Reference Range Comments WHITE BLOOD CELL COUNT (BEAKER) (test ajml=400) 6.1 10e3/ L 4.0-10.0 RED BLOOD CELL COUNT (BEAKER) (test rhwr=252) 4.33 10e6/ L 4.00-5.00 HEMOGLOBIN (BEAKER) (test kuqi=387) 13.0 g/dL 12.0-15.0 HEMATOCRIT (BEAKER) (test rynx=619) 40.1 % 36.0-45.0 MEAN CORPUSCULAR VOLUME (BEAKER) (test wluq=842) 92.5 fL 82.0-99.0 MEAN CORPUSCULAR HEMOGLOBIN (BEAKER) (test sgzz=620) 29.9 pg 27.0-33.0 MEAN CORPUSCULAR HEMOGLOBIN CONC (BEAKER) (test vzar=534) 32.4 g/dL 32.0-36.0 RED CELL DISTRIBUTION WIDTH (BEAKER) (test fgev=316) 13.3 % 10.3-14.2 PLATELET COUNT (BEAKER) (test vrxt=732) 259 10e3/ L 150-430 MEAN PLATELET VOLUME (BEAKER) (test qxvn=276) 7.9 fL 6.5-10.5 NEUTROPHILS RELATIVE PERCENT (BEAKER) (test ubjv=517) 64 % LYMPHOCYTES RELATIVE PERCENT (BEAKER) (test mhax=515) 22 % MONOCYTES RELATIVE PERCENT (BEAKER) (test ebum=997) 11 % EOSINOPHILS RELATIVE PERCENT (BEAKER) (test unat=184) 3 % BASOPHILS RELATIVE PERCENT (BEAKER) (test ecgt=369) 0 % NEUTROPHILS ABSOLUTE COUNT (BEAKER) (test ztbd=068) 3.85 10e3/ L 1.80-8.00 LYMPHOCYTES ABSOLUTE COUNT (BEAKER) (test kjnd=354) 1.33 10e3/ L 1.48-4.50 MONOCYTES ABSOLUTE COUNT (BEAKER) (test jsdl=658) 0.64 10e3/ L 0.00-1.30 EOSINOPHILS ABSOLUTE COUNT (BEAKER) (test fcja=783) 0.21 10e3/ L 0.00-0.50 BASOPHILS ABSOLUTE COUNT (BEAKER) (test fftk=215) 0.02 10e3/ L 0.00-0.20
--- OUTSIDE RECORDS SUMMARY | 2019-01-27 11:28 | XMS REPORT | Clinical Summary ---
Author Author [employer] Organization [employer] Address Unknown Phone Unavailable Care Team Providers Care Possum Trapper Name Role Phone PCP Unavailable Allergies Not on File Medications Not on file Active Problems Not on file Social History Date Tobacco Use Types Packs/Day Years Used Never Assessed Sex Assigned at Date Recorded Not on file Industry Job Start Date Occupation Not on file Not on file Not on file Travel End Travel History Travel Start No recent travel history available. Last Filed Vital Signs Not on file Plan of Treatment Not on file Results Not on fileafter 01/26/2018
[2019-01-27] MEDS ORDERED: CLONIDINE HCL 0.1 MG TAB ONE (12:26)
[2019-01-27] MEDS ORDERED: CLONIDINE HCL 0.2 MG TAB PO ONE (12:30)
--- NOTE | 2019-01-27 14:41 | Diagnostic Imaging Report ---
EXAMINATION: CXR 2 VIEW - HOPD INDICATION: High blood pressure. Itchy eyes. COMPARISON: None FINDINGS: TUBES and LINES: None. LUNGS: Lungs are well inflated. There are bibasilar atelectasis. There is perihilar interstitial opacities, consistent with interstitial edema. PLEURA: No pleural effusion or pneumothorax. HEART AND MEDIASTINUM: Cardiac size is moderately enlarged. There are atherosclerotic calcifications within the aorta. BONES AND SOFT TISSUES: No acute osseous lesion. Soft tissues are unremarkable. UPPER ABDOMEN: No free air under the diaphragm. IMPRESSION: Moderate cardiomegaly with interstitial edema. Signed by: Dr. Osvaldo Gunn M.D. on 01/27/2019 2:38 PM
[2019-01-27] MEDS ORDERED: SODIUM CHLORIDE FLUSH 10 ML SYR INJ PRN (16:15)
[2019-01-27] MEDS ORDERED: ONDANSETRON HCL INJ 2MG/ML 2ML 2 MG/ML VIAL IV PRN (16:15)
[2019-01-27] MEDS ORDERED: ASPIRIN 81 MG CHEW TAB PO ONE (16:15)
--- OUTSIDE RECORDS SUMMARY | 2019-01-27 16:59 | XMS REPORT | Clinical Summary ---
Author Author [employer] [facility] Address Unknown Phone Unavailable Care Team Providers Care Leak Detector Name Role Phone PCP Unavailable Allergies Not [...]
--- NOTE | 2019-01-27 17:48 | NUR ---
REPORT TO [facility] REPORT TO JENNIFER LOPEZ ALL QUESTIONS ANSWERED
--- NOTE | 2019-01-27 18:01 | NUR ---
REC'D PT AAOX3, BLIND TO BOTH EYES, NC IN PLACE RUNNING AT 2L/MIN. NO S/S OF DISTRESS. BP IS 209/84. [employer] FIELD COORDINATOR NOTIFIED. DAUGHTER AT BEDSIDE. TRANSFERRED PATIENT FROM STRETCHER TO BED. TELE BOX #28 AND RUNNING AT SINUS BRADYCARDIA. SIDE RAILS UP X2, BED IN LOWEST POSITION, AND CALL HURST WITHIN REACH.
[2019-01-27] MEDS: HYDRALAZINE HCL 20 MG/ML VIAL IV PRN (18:20)
[2019-01-27 18:32] VITALS: BP 209/84
[2019-01-27 18:33] VITALS: BP 209/84
[2019-01-27] MEDS ORDERED: OMEPRAZOLE40 MG PO (18:44)
[2019-01-27] MEDS ORDERED: CLONIDINE HCL0.1 MG PO (18:44)
[2019-01-27] MEDS ORDERED: HYDRALAZINE HCL25 MG PO (18:44)
[2019-01-27] MEDS ORDERED: AMLODIPINE BESY10 MG PO (18:44)
[2019-01-27] MEDS ORDERED: RENAGEL800 MG PO (18:44)
[2019-01-27] MEDS ORDERED: NEPHRO-VITE TABL1 EA PO (18:44)
--- NOTE | 2019-01-27 18:55 | NUR ---
REPORTED TO DIRECTOR CARDIOVASCULAR NURSE TO NOTIFY IS LABS COME BACK ABNORMAL TO WHETHER START DIALYSIS TONIGHT OR NO.
[2019-01-27 18:56] VITALS: BP 195/81
[2019-01-27] MEDS ORDERED: CLONIDINE HCL 0.1 MG TAB PO PRN (19:00)
[2019-01-27 20:00] VITALS: BP 203/84
[2019-01-27] MEDS: HYDRALAZINE HCL 25 MG TAB PO SCH (20:24)
[2019-01-27] MEDS: SEVELAMER CARBONATE 800 MG TAB PO SCH (20:24)
--- NOTE | 2019-01-27 20:30 | NUR ---
bp 203/84, scheduled hydralazine 100 mg given.
[2019-01-27 20:47] LABS: BASOPHILS % 0.6 % (0.0-1.0); EOSINOPHILS # (AUTO) 0.1 (0.0-0.4); EOSINOPHILS % 1.9 % (0.0-6.0); HEMATOCRIT 33.8 % (34.2-44.1); HEMOGLOBIN 10.7 g/dL (12.0-16.0); LYMPHOCYTES # (AUTO) 1.2 (1.0-3.2); LYMPHOCYTES % 18.8 % (18.0-39.1); MEAN CORPUSCULAR HEMOGLOBIN 30.8 pg (28-32); MEAN CORPUSCULAR HGB CONC 31.7 g/dL (31-35); MEAN CORPUSCULAR VOLUME 97.4 fL (81-99); MONOCYTES # (AUTO) 0.6 (0.2-0.8); NEUTROPHILS # (AUTO) 4.4 (2.1-6.9); NEUTROPHILS % 68.2 % (38.7-80.0); PLATELET COUNT 230 x10e3/uL (140-360); RED BLOOD COUNT 3.47 x10e6/uL (3.6-5.1)
[2019-01-27 21:04] LABS: CALCIUM 9.7 mg/dL (8.4-10.2); CREATININE, SERUM 6.04 mg/dL (0.57-1.11)
--- NOTE | 2019-01-27 21:42 | NUR ---
called dr calix with lab results. orders for hemodialysis tomorrow 01/28/19, call placed to [facility], spoke to vel [phone].
--- NOTE | 2019-01-27 21:45 | NUR ---
rechecked bp 186/66
[2019-01-28] VITALS (9 sets, daily range): BP systolic 162–210; BP diastolic 63–85
--- NOTE | 2019-01-28 00:30 | NUR ---
bp 199/84, prn hydralazine given.
[2019-01-28] MEDS: HYDRALAZINE HCL 20 MG/ML VIAL IV PRN ×2 (01:38→05:58)
--- NOTE | 2019-01-28 01:39 | NUR ---
recheck bp 187/77.
--- NOTE | 2019-01-28 04:15 | NUR ---
bp 210/79, prn clonidine given.
[2019-01-28 05:13] LABS: BASOPHILS % 0.5 % (0.0-1.0); EOSINOPHILS # (AUTO) 0.1 (0.0-0.4); EOSINOPHILS % 1.7 % (0.0-6.0); HEMATOCRIT 31.9 % (34.2-44.1); HEMOGLOBIN 10.2 g/dL (12.0-16.0); LYMPHOCYTES # (AUTO) 1.1 (1.0-3.2); LYMPHOCYTES % 17.2 % (18.0-39.1); MEAN CORPUSCULAR HEMOGLOBIN 30.8 pg (28-32); MEAN CORPUSCULAR VOLUME 96.4 fL (81-99); MONOCYTES # (AUTO) 0.6 (0.2-0.8); MONOCYTES % 8.4 % (4.4-11.3); NEUTROPHILS # (AUTO) 4.7 (2.1-6.9); NEUTROPHILS % 71.9 % (38.7-80.0); PLATELET COUNT 234 x10e3/uL (140-360); RED BLOOD COUNT 3.31 x10e6/uL (3.6-5.1); RED CELL DISTRIBUTION WIDTH 16.7 % (11.7-14.4)
--- NOTE | 2019-01-28 05:41 | NUR ---
bp after prn clonidine, 194/79.
[2019-01-28 05:45] LABS: ANION GAP 13.2 mmol/L (8-16); CALCIUM 9.6 mg/dL (8.4-10.2); CREATININE, SERUM 6.53 mg/dL (0.57-1.11); POTASSIUM 4.2 mmol/L (3.5-5.1)
[2019-01-28 06:33] LABS: CREATINE KINASE MB 0.8 ng/mL (0-5.0)
--- NOTE | 2019-01-28 07:10 | NUR ---
PT IS AAOX3, ON 2 L/MIN NC FOR O2, NO S/S OF DISTRESS. PT IS BLIND. IV TO RIGHT WRIST CLEAN AND INTACT. TELE BOX #28 AND RUNNING AT SB. BED IN LOWEST POSITION, SIDE RAILS UP X2, AND CALL HURST WITHIN REACH.
--- NOTE | 2019-01-28 07:42 | NUR ---
CALLED DIALYSIS CENTER TO ASK WHAT TIME DIALYSIS NURSE WILL BE HERE FOR DIALYZE PATIENT. DIALYSIS NURSE TO CALL BACK WITH AN ESTIMATION TIME.
[2019-01-28] MEDS: AMLODIPINE BESYLATE 10 MG TAB PO SCH (09:00)
[2019-01-28] MEDS: DOCUSATE SODIUM 100 MG CAP PO SCH ×2 (09:00→18:14)
[2019-01-28] MEDS: HYDRALAZINE HCL 25 MG TAB PO SCH ×3 (09:00→21:00)
--- NOTE | 2019-01-28 09:00 | NUR ---
CALLED DIALYSIS CENTER AGAIN TO SEE WHAT TIME DIALYSIS NURSE WILL BE HERE TO DIALYZE PATIENT. WAITING FOR SPRAY DRIER OPERATOR TO CALL BACK.
[2019-01-28] MEDS: SEVELAMER CARBONATE 800 MG TAB PO SCH ×3 (09:42→21:00)
[2019-01-28] MEDS: FAMOTIDINE 20 MG TAB PO SCH ×2 (09:42→18:14)
[2019-01-28] MEDS: FOLIC ACID/CYANOCOB/PYRIDOXINE TAB PO SCH (09:47)
--- NOTE | 2019-01-28 11:04 | NUR ---
DR. MORALES IN ROOM WITH PATIENT. NOTIFIED THAT DIALYSIS CENTER HAS BEEN NOTIFIED THREE TIMES ABOUT WHAT TIME THEY WILL BE IN TO DIALYZE HER.
--- NOTE | 2019-01-28 13:39 | Consultation ---
DATE OF CONSULTATION: 01/28/2019 Nephrology Consultation Note REASON FOR CONSULTATION: Dialysis management. HISTORY OF PRESENT ILLNESS: This is a 68-year-old female, known ESRD on dialysis, hypertension, comes into the emergency room due to elevated blood pressure that was occurring at home. According to the daughter at bedside, she reports that her blood pressure was extremely elevated at home and brought her in for further evaluation. Denies any headache, blurry vision, chest pain, or palpitations. She does report that she is very compliant with her dialysis. Denies any shortness of breath, cough, or congestion. Reports her last hemodialysis treatment was on Sunday and she was doing well with no issues. This patient is a patient of Dr. Perez, he is the primary doughnut batter mixer, which I cover for him. The patient was evaluated at bedside on the medical floor, currently doing well, getting a 2D echo. REVIEW OF SYSTEMS: Pertinent positives: Elevated blood pressure. Pertinent negatives: Denies any chest pain, palpitation, nausea, vomiting, diarrhea, dysuria, hematuria, frequency, urgency, lightheadedness, dizziness, abdominal pain, headaches, shortness of breath, cough, congestion, fever, or any other complaints. The rest of the 14-point review of systems have been reviewed with the patient and are negative. ALLERGIES: NO KNOWN DRUG ALLERGIES. HOME MEDICATIONS: Amlodipine 10 mg a day, clonidine 0.1 mg b.i.d. for elevated blood pressure, hydralazine 100 mg p.o. t.i.d., Renvela 400 mg p.o. t.i.d., and omeprazole 40 mg daily. PAST MEDICAL HISTORY: ESRD, on dialysis; hypertension; acid reflux. SURGICAL HISTORY: AV fistula creation, tunneled dialysis catheter. FAMILY HISTORY: Hypertension and diabetes. SOCIAL HISTORY: No drugs. No alcohol. Does not smoke. Good social support. PHYSICAL EXAMINATION: VITAL SIGNS: Temperature is 96.5, pulse 62, respiratory rate is 15, blood pressure is 172/73, pulse ox is 97% on room air. GENERAL: Not in acute distress. Alert and oriented x3. Cooperative on examination. HEENT: Head is normocephalic and atraumatic. Eyes; pupils are equal, round, and reactive to light bilaterally. Extraocular movements are intact bilaterally. Throat, no evidence of erythema or exudates in the posterior pharynx. Has poor dentition. NECK: Supple. Good range of motion. PULMONARY: Clear to auscultation bilaterally. No wheezing, no rales, no rhonchi, no crackles appreciated. CARDIOVASCULAR: Positive S1, S2. No murmurs, rubs, or gallops appreciated. ABDOMEN: Soft, nondistended, and nontender to palpation. Bowel sounds present. MUSCULOSKELETAL: Strength is 5/5 throughout. No evidence of any muscle deficits on examination. No weakness appreciated. NEUROLOGICAL: Cranial nerves 2 through 12 grossly intact. No evidence of any neurological deficits on exam. SKIN: Intact. Warm to touch. Good cap refill. PSYCHIATRIC: Normal affect and mood. EXTREMITIES: No edema. Good range of motion throughout. LABORATORY DATA: Lab findings show white count 6.5, hemoglobin 10.2, hematocrit 32, and platelets of 238. Chemistry; sodium was 135, potassium 4.2, chloride is 100, bicarb 26, anion gap of 13, BUN of 34, creatinine is 6.5, glucose is 109, calcium is 9.6. Troponins were negative. Albumin was 3. IMAGING STUDIES: Chest x-ray; moderate cardiomegaly with interstitial edema. IMPRESSION: 1. End-stage renal disease, on hemodialysis, Sunday, , Sunday. 2. Hypertension urgency. 3. Secondary hyperparathyroidism. 4. Anemia of end-stage renal disease. PLAN: At this time, her blood pressure seems to be in good control. She is only on hydralazine and Norvasc. I recommend discontinuing the Norvasc and adding nifedipine XL at 60 mg daily at is a very potent drug and very good for blood pressure. I will also try to challenge her on dialysis today approximately 3-4 L as tolerated. She normally gets 2 L on dialysis, but I will challenge her as her chest x-ray is consistent with pulmonary edema. Continue with phosphate binders renal diet. Her hemoglobin is 10.2 within the goal of 10 and 11. Otherwise, I discussed plan of care with nursing staff as well. MD CHINMAY Chaidez/RACHEL /[id number]
[2019-01-28 13:51] LABS: CREATINE KINASE MB 0.8 ng/mL (0-5.0)
--- NOTE | 2019-01-28 15:10 | NUR ---
Visit made by the Spiritual Care Department Pastoral Visitor, Judit Gruber. PV provided pastoral presence, hospitality, and supportive listening. Pastoral Visitor informed pt/family of the scope of [employer] and availability. ELIJAH JONES Blood Tester Fowl Spiritual Care Department O: [phone] Pager: [phone] ([phone] number calling from)
[2019-01-28] MEDS ORDERED: ONDANSETRON HCL 4 MG ORAL DISINTEGRATING TAB PO PRN (15:45)
--- NOTE | 2019-01-28 18:15 | NUR ---
PT IS UNDERGOING IJ PROCEDURE IN ROOM. NO S/S OF DISTRESS. Addendum: 01/28/19 at 1842 by SHAISTA BRENNER RN DOCUMENTED ON WRONG PATIENT. PATIENT IS LAYING BED, DAUGHTER IS AT BEDSIDE. DIALYSIS TO BE DONE BETWEEN 6PM-8PM PER DIALYSIS NURSE. SIDE RAILS UP X2, BED IN LOWEST POSITION, AND CALL HURST WITHIN REACH.
--- NOTE | 2019-01-28 18:23 | NUR ---
Nutrition Intervention Note RD Recommendation(s) for Physician: -Rec adding ADA to renal diet as medically appropriate -Rec Nepro once a day to increase protein-calorie intake -Rec HISTORIAN RESEARCH ASSISTANT consult if risk of aspiration is observed Plan of Care: RD following, monitoring for tolerance and adequacy, ONS rec Nutrition reason for involvement: Diagnosis RD Assessment 01/28 : Chart reviewed. 68yo F, who was admitted for elevated BP. Pt has been on HD for over 8 years ([facility]). Visited pt in the room. Per family, pt has had poor appetite for over 2 days. PO intake has been <50%. Weight has been stable. No GI complains noted. Pt denied any chewing difficulty. Per family, pt has been complaining of food stuck in her throat for long time. Pt usually drinks lots of fluids to get the food down. Recommended Nepro once a day due to poor appetite; family was agreeable with plan. Will continue to monitor and follow. Principal Problems/Diagnoses: CHF, ESRD, Uncontrolled HTN PMH: ESRD, on dialysis; hypertension; acid reflux. (+DM, per family) GI: abdomen soft, round Skin: intact Labs: (01/28) Na 135 L, BUN 34 H, Creatinine 6.53 H Meds: Nephro-horacio, renvela, pepcid Ht: 62in Wt: 156lb BMI: 28.5kg/m2 IBW: 110lb Malnutrition Evaluation (01/28) The patient does not meet criteria for a specified degree of malnutrition at this time. Will re-evaluate at follow-up as appropriate. Nutrition Prescription (Diet Order): Renal diet Estimated Nutritional Needs: Calories: 2130 2485kcal(30-35kcal/kg/d) Weight used : CBW Protein : 85 107g(1.2-1.5g/kg/d) Weight used: CBW Diet Adequacy: Not meeting calorie needs, Not meeting protein needs Diet Education Needs Assessment: Diet education not indicated; patient on regular diet. followed by RD at [facility] Nutrition Care Level: low Nutrition Diagnosis: Inadequate energy intake related to current medical status as evidenced by poor appetite. Goal: Patient will meet 75-100% of estimated needs by follow up Progress: N/A Interventions: modified diet, Commercial beverage Monitoring/Evaluation: Total energy intake, Total protein intake, Modified diet, Liquid supplement, Weight change Signed: Pushpa Dickinson, , RD, LD
[2019-01-28] MEDS ORDERED: SODIUM CHLORIDE 0.9% 1000ML 2,000 ML ONE (19:25)
--- NOTE | 2019-01-28 19:40 | NUR ---
DR. MORALES CALLED, ORDERS FOR DIALYSIS GIVEN, DIALYSIS NURSE HERE TO START PROCEDURE, LABS PRINTED, LABS ALSO GIVEN TO DR MORALES ON THE PHONE
--- NOTE | 2019-01-28 20:00 | NUR ---
PT IN BED, FAMILY AT BEDSIDE, DIALYSIS TO BEGIN, CONTINUOUS MONITORING, CALL LIGHT IN REACH, NO DISTRESS OR PAIN NOTED AT THIS TIME,
[2019-01-29] VITALS (7 sets, daily range): BP systolic 125–186; BP diastolic 57–79
--- NOTE | 2019-01-29 | NUR ---
DIALYSIS COMPLETE, PT TOLERATED WELL, 3 L TAKEN OFF, FAMILY AT BEDSIDE, NO DISTRESS NOTED, VS WNL
[2019-01-29 05:22] LABS: BASOPHILS % 0.6 % (0.0-1.0); EOSINOPHILS # (AUTO) 0.1 (0.0-0.4); EOSINOPHILS % 1.7 % (0.0-6.0); HEMATOCRIT 35.1 % (34.2-44.1); HEMOGLOBIN 10.9 g/dL (12.0-16.0); LYMPHOCYTES # (AUTO) 1.1 (1.0-3.2); LYMPHOCYTES % 16.2 % (18.0-39.1); MEAN CORPUSCULAR HEMOGLOBIN 30.4 pg (28-32); MEAN CORPUSCULAR HGB CONC 31.1 g/dL (31-35); MONOCYTES # (AUTO) 0.8 (0.2-0.8); MONOCYTES % 10.9 % (4.4-11.3); NEUTROPHILS # (AUTO) 4.9 (2.1-6.9); NEUTROPHILS % 70.3 % (38.7-80.0); PLATELET COUNT 262 x10e3/uL (140-360); RED BLOOD COUNT 3.58 x10e6/uL (3.6-5.1); RED CELL DISTRIBUTION WIDTH 16.4 % (11.7-14.4)
[2019-01-29 05:43] LABS: ANION GAP 12.2 mmol/L (8-16); CALCIUM 9.3 mg/dL (8.4-10.2); CREATININE, SERUM 3.5 mg/dL (0.57-1.11); POTASSIUM 4.2 mmol/L (3.5-5.1)
[2019-01-29] MEDS: DOCUSATE SODIUM 100 MG CAP PO SCH ×2 (08:19→16:45)
[2019-01-29] MEDS: FOLIC ACID/CYANOCOB/PYRIDOXINE TAB PO SCH (08:19)
[2019-01-29] MEDS: FAMOTIDINE 20 MG TAB PO SCH ×2 (08:19→16:45)
[2019-01-29] MEDS: HYDRALAZINE HCL 25 MG TAB PO SCH ×3 (08:19→21:51)
[2019-01-29] MEDS: AMLODIPINE BESYLATE 10 MG TAB PO SCH (08:20)
[2019-01-29] MEDS: SEVELAMER CARBONATE 800 MG TAB PO SCH ×3 (08:20→21:51)
[2019-01-29] MEDS ORDERED: ONDANSETRON HCL INJ 2MG/ML 2ML 2 MG/ML VIAL IV PRN (09:45)
[2019-01-29] MEDS: HYDRALAZINE HCL 20 MG/ML VIAL IV PRN (09:50)
[2019-01-29] MEDS: NIFEDIPINE CR 30 MG TAB PO SCH (11:00)
[2019-01-29] MEDS: LISINOPRIL 20 MG TAB PO SCH (11:00)
[2019-01-29] MEDS: METOCLOPRAMIDE HCL 10 MG/2ML VIAL IV SCH ×3 (11:01→21:55)
[2019-01-29] MEDS: INSULIN LISPRO 100 UNIT/1 ML 3ML VIAL SQ SCH ×3 (11:30→21:00)
--- NOTE | 2019-01-29 13:48 | Progress Note ---
DATE: 01/29/2019 Nephrology progress Note SUBJECTIVE: The patient is doing much better today with no complaints. Ultrafiltration yesterday with much better . OBJECTIVE: VITAL SIGNS: Temperature 97.7, pulse 73, respiratory rate is 16, blood pressure 108/74, pulse ox 95% on room air. GENERAL: Not in acute distress. Alert and oriented x3. Cooperative on examination. HEENT: Head is normocephalic and atraumatic. Eyes; pupils are equal, round, and reactive to light bilaterally. Extraocular movements are intact bilaterally. Throat, no evidence of erythema or exudates in the posterior pharynx. Has poor dentition. NECK: Supple. Good range of motion. PULMONARY: Clear to auscultation bilaterally. No wheezing, no rales, no rhonchi, no crackles appreciated. CARDIOVASCULAR: Positive S1, S2. No murmurs, rubs, or gallops appreciated. ABDOMEN: Soft, nondistended, and nontender to palpation. Bowel sounds present. MUSCULOSKELETAL: Strength is 5/5 throughout. No evidence of any muscle deficits on examination. No weakness appreciated. NEUROLOGICAL: Cranial nerves 2 through 12 grossly intact. No evidence of any neurological deficits on exam. SKIN: Intact. Warm to touch. Good cap refill. PSYCHIATRIC: Normal affect and mood. EXTREMITIES: No edema. Good range of motion throughout. LABORATORY DATA: Lab findings show white count is 6.9, hemoglobin 10.9, hematocrit 35, platelets of 262. Chemistry; sodium 133, potassium 4.1, chloride 96, bicarb 29, anion gap 12, BUN of 30, creatinine 3.5, glucose is 82. IMPRESSION: 1. End-stage renal disease, on hemodialysis, Sunday, , Sunday. 2. . 3. Anemia of end-stage renal disease. PLAN: The patient had ultrafiltration yesterday 3 to 4 L as tolerated. She tolerated diet well. Dialysis scheduled for tomorrow as per schedule. Her blood pressure is still elevated. I did add a bunch of new medications yesterday, which we will see if this will work and see if her blood pressure is much improved. Otherwise, schedule HD for tomorrow, get a.m. labs. MD CHINMAY Chaidez/RACHEL /[id number]
--- NOTE | 2019-01-29 15:52 | NUR ---
PATIENT WITH HOME O2 EVALUATION. PATIENT DESATURATES TO 80% SPO2 AT REST ON ROOM AIR. PATIENT QUALIFIES FOR HOME OXYGEN. CM SPOKE TO PATIENT AT BEDSIDE REGARDING HOME O2 ORDER. PATIENT AGREES TO HOME O2. PATIENT GIVEN CHOICE OF HOME O2 SERVICE PROVIDERS. PATIENT CHOSE [facility] IN [place]. CLINICAL AND ORDER SENT TO [facility]. PENDING AUTH AND DELIVERY TO HOSPITAL FOR DISCHARGE. [employer] SUPPLIES (P) [phone] (F) [phone]
[2019-01-29] MEDS: MEGESTROL ACETATE 40 MG TAB PO SCH (16:45)
[2019-01-29] MEDS: ACETAMINOPHEN 325 MG TAB PO PRN (16:45)
--- NOTE | 2019-01-29 19:00 | NUR ---
Report given to oncoming nurse of patient's status. NO s/s of acute distress noted. Family at bedside.
--- NOTE | 2019-01-29 19:15 | NUR ---
Patient received sitting up in bed. Family at bedside. AAO x 3. No c/o pain. No signs of respiratory distress. Fall precautions implemented. Patient instructed to call for assistance when needed. Call light within reach.
[2019-01-30] VITALS (8 sets, daily range): BP systolic 131–163; BP diastolic 57–66
[2019-01-30 05:21] LABS: BASOPHILS % 0.3 % (0.0-1.0); EOSINOPHILS # (AUTO) 0.1 (0.0-0.4); EOSINOPHILS % 1.8 % (0.0-6.0); HEMATOCRIT 32.2 % (34.2-44.1); HEMOGLOBIN 10.2 g/dL (12.0-16.0); LYMPHOCYTES # (AUTO) 1.4 (1.0-3.2); LYMPHOCYTES % 22.5 % (18.0-39.1); MEAN CORPUSCULAR HEMOGLOBIN 30.9 pg (28-32); MEAN CORPUSCULAR HGB CONC 31.7 g/dL (31-35); MEAN CORPUSCULAR VOLUME 97.6 fL (81-99); MONOCYTES # (AUTO) 0.8 (0.2-0.8); MONOCYTES % 12.5 % (4.4-11.3); NEUTROPHILS # (AUTO) 3.9 (2.1-6.9); NEUTROPHILS % 62.7 % (38.7-80.0); PLATELET COUNT 249 x10e3/uL (140-360); RED CELL DISTRIBUTION WIDTH 16.1 % (11.7-14.4)
[2019-01-30 05:55] LABS: ANION GAP 9.7 mmol/L (8-16); CALCIUM 9.7 mg/dL (8.4-10.2); CREATININE, SERUM 5.05 mg/dL (0.57-1.11); MAGNESIUM 2.1 MG/DL (1.3-2.1); POTASSIUM 3.7 mmol/L (3.5-5.1)
--- NOTE | 2019-01-30 06:23 | Diagnostic Imaging Report ---
EXAMINATION: CHEST SINGLE (PORTABLE) COMPARISON: Chest x-ray 01/27/2019 INDICATION: Shortness of breath ^SOB DISCUSSION: Frontal view of the chest obtained at 0608 hours. HEART AND MEDIASTINUM: Stable cardiomegaly and aortic tortuosity LINES: None. LUNGS: Diffuse hyperinflation consistent with COPD. Discoid atelectasis in the left midlung field. Stable mild vascular congestion. PLEURA: Bilateral pleural effusions, small, with right pleural effusion with the larger than the left BONES AND SOFT TISSUES: No focal osseous lesion. The soft tissues are normal. IMPRESSION: Small bilateral pleural effusions. Cardiomegaly and vascular congestion. Signed by: Dr. Mike Alvarez MD on 01/30/2019 6:20 AM
--- NOTE | 2019-01-30 07:00 | NUR ---
Shift report given to oncoming nurse
[2019-01-30] MEDS: INSULIN LISPRO 100 UNIT/1 ML 3ML VIAL SQ SCH ×4 (07:30→20:43)
[2019-01-30] MEDS: METOCLOPRAMIDE HCL 10 MG/2ML VIAL IV SCH ×4 (08:13→20:57)
[2019-01-30] MEDS: FAMOTIDINE 20 MG TAB PO SCH ×2 (08:13→16:30)
[2019-01-30] MEDS: HYDRALAZINE HCL 25 MG TAB PO SCH ×3 (08:14→20:57)
[2019-01-30] MEDS: FOLIC ACID/CYANOCOB/PYRIDOXINE TAB PO SCH (08:15)
[2019-01-30] MEDS: DOCUSATE SODIUM 100 MG CAP PO SCH ×2 (08:15→16:55)
[2019-01-30] MEDS: MEGESTROL ACETATE 40 MG TAB PO SCH ×2 (08:15→16:30)
[2019-01-30] MEDS: LISINOPRIL 20 MG TAB PO SCH (08:15)
[2019-01-30] MEDS: SEVELAMER CARBONATE 800 MG TAB PO SCH ×3 (08:16→20:57)
[2019-01-30] MEDS: NIFEDIPINE CR 30 MG TAB PO SCH (08:16)
[2019-01-30] MEDS ORDERED: LISINOPRIL 20 MG TAB PO SCH (09:00)
[2019-01-30] MEDS ORDERED: NIFEDIPINE CR 30 MG TAB PO SCH ×2 (09:00)
[2019-01-30] MEDS ORDERED: NIFEDIPINE CR 30 MG TAB PO ONE (10:00)
[2019-01-30] MEDS ORDERED: SODIUM CHLORIDE 0.9% 1000ML 1,000 ML ONE (10:56)
--- NOTE | 2019-01-30 12:39 | Progress Note ---
DATE: 01/30/2019 Renal progress Note SUBJECTIVE: The patient is receiving hemodialysis today. I am challenging her for 3 to 4 L ultrafiltration today. OBJECTIVE: VITAL SIGNS: Temperature is 97.4, pulse 67, respiratory rate is 16, blood pressure is 151/60, pulse ox 97% on 3 L nasal cannula. GENERAL: Not in acute distress. Alert and oriented x3. Cooperative on examination. HEENT: Head is normocephalic and atraumatic. Eyes; pupils are equal, round, and reactive to light bilaterally. Extraocular movements are intact bilaterally. Throat, no evidence of erythema or exudates in the posterior pharynx. Has poor dentition. NECK: Supple. Good range of motion. PULMONARY: Clear to auscultation bilaterally. No wheezing, no rales, no rhonchi, no crackles appreciated. CARDIOVASCULAR: Positive S1, S2. No murmurs, rubs, or gallops appreciated. ABDOMEN: Soft, nondistended, and nontender to palpation. Bowel sounds present. MUSCULOSKELETAL: Strength is 5/5 throughout. No evidence of any muscle deficits on examination. No weakness appreciated. NEUROLOGICAL: Cranial nerves II through XII grossly intact. No evidence of any neurological deficits on exam. SKIN: Intact. Warm to touch. Good cap refill. PSYCHIATRIC: Normal affect and mood. EXTREMITIES: No edema. Good range of motion throughout. LABORATORY DATA: Lab findings show white count of 6.1, hemoglobin 10.2, hematocrit of 32, platelets of 249. Chemistry; sodium 131, potassium 3.7, chloride 93, bicarb 29, anion gap of 9.7, BUN of 28, creatinine 5, glucose is 91. IMPRESSION: 1. End-stage renal disease, on hemodialysis, Sunday, , Sunday. Scheduled for hemodialysis today. 2. Secondary hyperparathyroidism. 3. Anemia of end-stage renal disease. PLAN: At this time, hemodialysis scheduled today. The patient was evaluated during dialysis and our goal is to do 3.5 hours with ultrafiltration, 3 to 4 L with the ultrafiltration challenge. Continue with phosphorus binders, renal diet. If the patient gets discharged, she will follow up on Sunday with her normal hemodialysis chart time and scheduled. Otherwise, we will continue to follow closely while she is here in the hospital. MD CHINMAY Chaidez/YESENIAL /[id number]
--- NOTE | 2019-01-30 12:59 | NUR ---
CM SPOKE TO JERMAN FROM [facility] REGARDING PATIENT O2. LETTER OF MEDICAL NECESSITY E-FAXED TO DR. WHITESIDE. ONCE THAT LETTER IS SIGNED, O2 WILL BE DELIVERED TO THE BEDSIDE. [facility] (P) [phone] (F) [phone]
[2019-01-30] MEDS ORDERED: ONDANSETRON HCL 4 MG ORAL DISINTEGRATING TAB PO PRN (16:15)
[2019-01-30] MEDS: ACETAMINOPHEN 325 MG TAB PO PRN ×2 (16:30→23:22)
[2019-01-30] MEDS: HYDRALAZINE HCL 20 MG/ML VIAL IV PRN (16:30)
--- NOTE | 2019-01-30 18:24 | NUR ---
Resting in bed, side rails upx2, call light within reach, family at bedside. No s/s of acute distress noted. Report to be given to oncoming nurse.
--- NOTE | 2019-01-30 19:28 | NUR ---
Patient received lying in bed. AAO x 3. Family at bedside. No acute distress noted. Call light within reach.
--- NOTE | 2019-01-30 21:30 | NUR ---
Report of patient's status given to Paula GLASGOW). Patient transported to [facility]-- Room 198 via W/C accompanied by . Addendum: 01/31/19 at 0713 by Martin Castillo RN Correction: Entry for wrong patient.
[2019-01-31 00:10] VITALS: BP 169/74
[2019-01-31] MEDS: HYDRALAZINE HCL 20 MG/ML VIAL IV PRN (00:40)
[2019-01-31 04:00] VITALS: BP 140/63
[2019-01-31 05:05] LABS: BASOPHILS % 0.5 % (0.0-1.0); EOSINOPHILS # (AUTO) 0.1 (0.0-0.4); EOSINOPHILS % 2.1 % (0.0-6.0); HEMATOCRIT 33.9 % (34.2-44.1); HEMOGLOBIN 10.4 g/dL (12.0-16.0); LYMPHOCYTES # (AUTO) 1.6 (1.0-3.2); LYMPHOCYTES % 25.2 % (18.0-39.1); MEAN CORPUSCULAR HEMOGLOBIN 30.4 pg (28-32); MEAN CORPUSCULAR HGB CONC 30.7 g/dL (31-35); MEAN CORPUSCULAR VOLUME 99.1 fL (81-99); MONOCYTES # (AUTO) 0.9 (0.2-0.8); MONOCYTES % 14.5 % (4.4-11.3); NEUTROPHILS # (AUTO) 3.5 (2.1-6.9); NEUTROPHILS % 57.5 % (38.7-80.0); PLATELET COUNT 232 x10e3/uL (140-360); RED BLOOD COUNT 3.42 x10e6/uL (3.6-5.1); RED CELL DISTRIBUTION WIDTH 16.2 % (11.7-14.4)
[2019-01-31 05:29] LABS: CALCIUM 9.9 mg/dL (8.4-10.2); CREATININE, SERUM 3.73 mg/dL (0.57-1.11); MAGNESIUM 2.1 MG/DL (1.3-2.1)
--- NOTE | 2019-01-31 07:00 | NUR ---
Patient resting comfortably. Walking rounds done. Report given to oncoming nurse.
[2019-01-31 07:30] VITALS: BP 166/74
[2019-01-31] MEDS: INSULIN LISPRO 100 UNIT/1 ML 3ML VIAL SQ SCH ×3 (07:30→17:44)
--- NOTE | 2019-01-31 07:30 | NUR ---
Received patient AAOx3, patient is blind in both eyes, daughter is a bedside providing assistance. Patient is on room air sitting on the chair. No s/s of distress.
[2019-01-31 08:00] VITALS: BP 167/72
[2019-01-31] MEDS ORDERED: NIFEDIPINE CR 30 MG TAB PO SCH (09:00)
[2019-01-31] MEDS: FAMOTIDINE 20 MG TAB PO SCH ×2 (09:44→15:51)
[2019-01-31] MEDS: FOLIC ACID/CYANOCOB/PYRIDOXINE TAB PO SCH (09:45)
[2019-01-31] MEDS: HYDRALAZINE HCL 25 MG TAB PO SCH ×2 (09:45→15:50)
[2019-01-31] MEDS: LISINOPRIL 20 MG TAB PO SCH (09:45)
[2019-01-31] MEDS: DOCUSATE SODIUM 100 MG CAP PO SCH ×2 (09:45→15:53)
[2019-01-31] MEDS: SEVELAMER CARBONATE 800 MG TAB PO SCH ×2 (09:45→15:48)
[2019-01-31] MEDS: MEGESTROL ACETATE 40 MG TAB PO SCH ×2 (09:45→15:51)
[2019-01-31] MEDS: METOCLOPRAMIDE HCL 10 MG/2ML VIAL IV SCH ×3 (09:50→15:48)
[2019-01-31] MEDS ORDERED: MEGESTROL ACETA40 MG PO (10:11)
[2019-01-31] MEDS ORDERED: MELATONIN5 M2 PO (10:11)
[2019-01-31] MEDS ORDERED: LISINOPRIL20 MG PO (10:11)
[2019-01-31] MEDS ORDERED: CARDURA2 MG PO (10:11)
[2019-01-31] MEDS ORDERED: NIFEDIPINE ER30 M1 PO (10:11)
[2019-01-31] MEDS ORDERED: METOCLOPRAMIDE10 MG PO (10:11)
[2019-01-31] MEDS ORDERED: MELATONIN 5 MG TABLET PO PRN (10:15)
[2019-01-31] MEDS: DOXAZOSIN MESYLATE 2 MG TAB PO SCH ×2 (10:21→15:51)
--- NOTE | 2019-01-31 12:10 | NUR ---
oxygen has been delivered to patient and both patient and family have been educated on how to use oxygen.
[2019-01-31 12:41] VITALS: BP 166/74
--- NOTE | 2019-01-31 13:18 | NUR ---
DISCHARGE DISPOSITION: PATIENT DISCHARGING HOME WITH HOME OXYGEN FROM THE FOLLOWING COMPANY: [facility] (P) [phone] (F) [phone] OXYGEN DELIVERED TO BEDSIDE. BEDSIDE RN SHAISTA NOTIFIED. PATIENT TO DISCHARGE TODAY IF BP WITHIN NORMAL LIMITS.
--- NOTE | 2019-01-31 15:30 | NUR ---
Patient's blood sugar is 64. Tech gave 4 oz of orange juice. Will re-check blood sugar in 15 minutes.
[2019-01-31 16:00] VITALS: BP 143/84
[2019-01-31] MEDS ORDERED: DOXAZOSIN MESYLATE 2 MG TAB PO SCH (17:00)
--- NOTE | 2019-01-31 18:15 | NUR ---
BP HAVE BEEN 166/74 @ 1215, 143/84 @ 1415, 139/88 @ 1615, AND 142/95 @ 1815. NOTIFIED ACTIVITIES THERAPIST ADELIA ARMSTRONG AND ORDERED TO DISCHARGE PATIENT. WILL NOTIFY FINE UNHAIRER NURSE. PATIENT IS IN BED, BED IN LOWEST POSITION, SIDE RAILS UP X2, AND CALL HURST WITHIN REACH.
--- NOTE | 2019-01-31 19:36 | NUR ---
Patient was discharge via wheelchair. Discharge instruction given to the daughter.
--- NOTE | 2019-02-01 02:22 | Discharge Summary ---
ADMISSION DIAGNOSES: Hypertensive emergency, end-stage renal disease, uncontrolled hypertension complicated by end-stage renal disease with fluid overload, fluid overload, type 2 diabetes complicated by end-stage renal disease, gastroesophageal reflux disease with diabetic gastroparesis, sinus bradycardia with 1st degree AV block, hyperlipidemia, ambulatory dysfunction with history of cerebrovascular accident, and legally blind. DISCHARGE DIAGNOSES: Hypertensive emergency, end-stage renal disease, uncontrolled hypertension complicated by end-stage renal disease with fluid overload, fluid overload, type 2 diabetes complicated by end-stage renal disease, gastroesophageal reflux disease with diabetic gastroparesis, sinus bradycardia with 1st degree AV block, hyperlipidemia, ambulatory dysfunction with history of cerebrovascular accident, and legally blind. HISTORY: The patient has a history of end-stage renal disease, hypertension, hyperlipidemia, GERD, type 2 diabetes, CVA, legally blind, left eye glaucoma, diabetic retinopathy. SURGICAL HISTORY: Left eye surgery, , cholecystectomy. FAMILY HISTORY: The patient's dad has diabetes. SOCIAL HISTORY: Noncontributory. HOSPITAL COURSE: A 68-year-old female started having a headache and neck pain around noon on Sunday. She went to her primary care office, but due to the holiday the office was closed, so the patient came to the ER. Also on Sunday, the patient had malaise and shortness of breath. She only had part of her dialysis prior to admission. On admission to the hospital, the patient's blood pressure was 204/69 and got as high as 210/79. The patient was admitted and started on blood pressure medicine. Nephrology was consulted for dialysis. Chest x-ray showed moderate cardiomegaly with interstitial edema. Echo showed an EF of 50% to 55%. The patient's blood pressure took a couple of days to respond to medication. She is now receiving Cardura, lisinopril, nifedipine, as well as her hydralazine t.i.d. She was also given melatonin for insomnia and Megace for poor appetite. On day of discharge, blood pressure is back down to the 130s and 140s. She will discharge home with family. She qualifies for oxygen as her saturation was 80% on room air at rest. Oxygen was delivered prior to discharge. The patient's daughter and the patient understand discharge instructions and agrees to plan. Vital signs stable. The patient afebrile. She will follow up with primary care in 1 to 2 weeks. Dictated by Gladis French, H[employer] AND [employer] DRYING ROOM ATTENDANT MD MERLY Thacker/RACHEL /[id number]
== END 2019-01-31 19:42 | disposition home or self-care (01) | DRG 304 ==
LOC: FSED 11:26 → ERHOLD 16:09 → MED/SURG2 18:02
PROVIDERS: ADMIT Internal Medicine; ATTEND Internal Medicine
PROC: 5A1D70Z Performance of Urinary Filtration, Intermittent, Less than 6 Hours Per Day (ICD-10-PCS; principal; 2019-01-28)
PROC: 5A1D70Z Performance of Urinary Filtration, Intermittent, Less than 6 Hours Per Day (ICD-10-PCS; 2019-01-30)
DX: I16.0 Hypertensive urgency (principal); N18.6 End stage renal disease; I12.0 Hypertensive chronic kidney disease with stage 5 chronic kidney disease or end stage renal disease; E11.22 Type 2 diabetes mellitus with diabetic chronic kidney disease; Z99.2 Dependence on renal dialysis; Z79.4 Long term (current) use of insulin; E21.3 Hyperparathyroidism, unspecified; K21.9 Gastro-esophageal reflux disease without esophagitis; H40.9 Unspecified glaucoma; H54.8 Legal blindness, as defined in USA; E11.319 Type 2 diabetes mellitus with unspecified diabetic retinopathy without macular edema; E87.70 Fluid overload, unspecified; R00.1 Bradycardia, unspecified; E11.43 Type 2 diabetes mellitus with diabetic autonomic (poly)neuropathy; K31.84 Gastroparesis; I44.0 Atrioventricular block, first degree; R26.89 Other abnormalities of gait and mobility; I69.398 Other sequelae of cerebral infarction
CPT/HCPCS: 36415; 71045; 71046; 80048; 80053; 82550; 82553; 82948; 83036; 83735; 83880; 84100; 84484; 85025; 86704; 86706; 86707; 87340; 87350; 93005; 93306; 94760; 97139; 99284; J0360; J2405; J2765; J7030